=== PATIENT | male | born 1975 | race African-American/Black ===

== ENCOUNTER 2016-09-12 16:01 | Inpatient (IN) | payer OTHER ==
[~2016-09-12] VITALS: Ht 188 cm; Wt 92.1 kg
--- NOTE | ~2016-09-12 | CON ---
[place], [place] REPORT OF CONSULTATION NAME: SHARMILA RODAS UNIT #: [id number] ROOM: [place] [address] DOCTOR: ALESSANDRA ESCOBAR BIRTHDATE: [birth year] DOS: 09/14/2016 HISTORY OF PRESENT ILLNESS: This is a 41-year-old male who was sent to [facility] for acute psychosis. The patient has a long history of schizophrenia and bipolar. He was brought by the police department acting erratically. Family of the patient reported that the patient had exposed himself to another family member and their 6-year-old daughter. Enroute to the hospital, he expressed suicidal ideation. He became very combative manic, yelling out, acting very erratically. Apparently, he had had a boil on his back side and requiring I and D, and so he was requiring multiple skin grafts, and so he is fixated on that. The patient was in the Emergency Room for approximately 3 days, trying to find placement. He has been in multiple psychiatric facilities recently, history of noncompliance with medications. He was eventually brought to the ICU because of some abnormal labs for management and stabilization in order to be transferred to a psychiatric unit. PAST MEDICAL HISTORY: Includes hep C, hidradenitis, skin ulcers. DIAGNOSES: AXIS I: Bipolar schizoaffective disorder, schizophrenia. MENTAL STATUS: The patient is alert and oriented to person, place, and approximate time. Mood, very labile. Affect is appropriate. He is a little sedated. I was initially contacted yesterday afternoon and gave orders for medications. After that within an hour, the patient became violent, a code had to be called. He was put in four-point restraints, and received not only IM Geodon, but then IM Haldol as well. The patient is currently denying any auditory or visual hallucinations. There may be some underlying delusions going on right now and a little bit of paranoia. Overall, memory appears to be intact. PLAN: I did discuss with nurses. They are using the p.r.n. Ativan. He does respond to this. Right now, he is a little groggy because of the Geodon, Haldol, and he received Ativan. I think at this point in time, I am going to schedule a low dose Ativan to see if we can head off some of the behaviors, and agitation and anxiety, keep him calm and maybe use less IM and p.r.n. medications if we can be a little more proactive. I did order the following medications for him. He is to be on Invega 6 mg. In the past, he received the Invega Sustenna injection, but he does not know the last time he received it. I did ask the nurse of last night to reach out to his pharmacist and find out what medications they are aware that he is still recently he used to be on, so right now he is getting Invega 6 mg. I will see how he does today taking it. He is agreeable to that and then I will bump that up. I had initially order trazodone to help him sleep, but he is also on p.r.n. Restoril, so I will go ahead and discontinue the trazodone that I had ordered. He has Geodon 20 mg IM or p.o., no more than 2 doses in 24 hours, p.r.n. ordered and Ativan 1 mg p.o. IM q.4 hours p.r.n., also ordered. He was to be on Depakote, but his valproic acid level was 3.4. He also admits that he was not taking the Depakote, so I have got him back on it. He is agreeable to take it. We will do 500 mg b.i.d. and then we will recheck his valproic acid level in a few days. He was found to be severely vitamin D deficient at 7.9. I will go ahead and start him on 50,000 [place], [place] REPORT OF CONSULTATION NAME: SHARMILA RODAS UNIT #: [id number] ROOM: [place] [address] DOCTOR: ALESSANDRA ESCOBAR BIRTHDATE: [birth year] international units every week for now. This will help with the psychotropics as well. The patient states that he does get frustrated to have to take pills all the time, he is more agreeable to the injection. He finds it easier, so once I see that he does not have any side effects other than him stating, he did not have any side effects to the Invega, if he tolerates it, we can help break some of the psychosis. We will look at maybe reloading him with Williams Ahmet if he indeed receive that and try to simplify his medications as much as possible to encourage compliance. In the meantime, I spoke his case with the hospitalist, they are trying to stabilize some of his other labs and then plan is to transfer him to a psychiatric hospital that takes his age group. We will continue to follow up with him and adjust medications from a psychiatric standpoint as needed. AMY ESCOBAR CNP CM:CONSTR:REPORT OF CONSULTATION 1016 09/17/16 0447 interface
[2016-09-12 16:01] VITALS: BP 151/109
[~2016-09-12 16:01] MED LIST: ATIVAN1 MG PO; BACTRIM DS 8001 TA1 PO; DEPAKOTE500 MG PO; INVEGA SUSTENN234 MG IM; Motrin,Rufen800 MG PO; NKHM; TYLENOL325 M1 PO; UNKONWN; ZITHROMAX250 MG PO
[2016-09-12 16:22] VITALS: BP 151/109
[2016-09-12] MEDS ORDERED: TRAZODONE50 MG PO (16:38)
[2016-09-12] MEDS ORDERED: DEPAKOTE DR500 MG PO (16:40)
[2016-09-12] MEDS ORDERED: COGENTIN0.5 MG PO (16:42)
[2016-09-12] MEDS ORDERED: INVEGA6 MG PO (16:44)
[2016-09-12] MEDS ORDERED: DOXYCYCLINE100 M3 PO (16:45)
[2016-09-12 17:30] LABS: BILIRUBIN NEGATIVE (NEGATIVE); BLOOD NEGATIVE (NEGATIVE); CLARITY SL CLOUDY (CLEAR); COLOR YELLOW (YELLOW); GLUCOSE NEGATIVE (NEGATIVE); KETONE NEGATIVE (NEGATIVE); LEUKO ESTERASE NEGATIVE (NEGATIVE); NITRITE NEGATIVE (NEGATIVE); PROTEIN NEGATIVE (NEGATIVE); SPECIFIC GRAVITY 1.025 (1.005-1.030)
[2016-09-12 17:37] LABS: BACTERIA 1+; EPITHELIAL CELLS 0-2; MUCOUS 1+; RBC 0-2 rbc/hpf (0-2); URINE AMPHETAMINES < 1000 (1000ng/ml); URINE BARBITURATES < 200 (200ng/ml); URINE COCAINE < 300 (300ng/ml); URINE REFLEX COMMENT NO (NO)
[2016-09-12 19:12] VITALS: BP 142/64
[2016-09-12 20:24] VITALS: BP 140/80
[2016-09-12 20:56] LABS: BASO % 0.4 % (0.0-1.0); EOS # 0.1 10*3/uL (0.0-0.4); EOS % 1.3 % (1.0-4.0); HEMATOCRIT 44.2 % (42.0-52.0); HEMOGLOBIN 15.2 g/dl (14.0-18.0); LYMPH # 2.1 10*3/uL (1.3-4.4); LYMPH % 38.7 % (27.0-41.0); MEAN CELL VOLUME 88.8 fl (80.0-94.0); MEAN CORPUSCULAR HGB 30.5 pg (27.0-31.0); MEAN CORPUSCULAR HGB CONC 34.4 g/dl (33.0-37.0); MEAN PLATELET VOLUME 9.6 fl (9.6-12.3); MONO # 0.7 10*3/uL (0.1-1.0); MONO % 13.2 % (3.0-9.0); NEUT # 2.5 10*3/uL (2.3-7.9); NEUT % 46.2 % (47.0-73.0); PLATELET COUNT AUTOMATED 137 10*3/uL (130-400); RED BLOOD COUNT 4.98 10*6/uL (4.50-5.90); RED CELL DISTRI WIDTH 11.9 % (0-14.5); WHITE BLOOD COUNT 5.5 10*3/uL (4.8-10.8)
[2016-09-12 21:13] LABS: ALBUMIN 3.4 gm/dl (3.1-4.5); ALKALINE PHOSPHATASE 82 U/L (45-117); BILIRUBIN, TOTAL 0.5 mg/dl (0.2-1.0); BUN 12 mg/dl (7-24); C-REACTIVE PROTEIN 0.36 MG/DL (0-0.3); CARBON DIOXIDE 29 mmol/L (21-32); CHLORIDE 104 mmol/L (98-107); CKMB 2.6 ng/ml (0.5-3.6); EST GLOM FILT AFRICAN AMERICAN > 60 ml/min; GLUCOSE 77 mg/dL (65-99); MAGNESIUM 2.1 mg/dL (1.5-2.1); POTASSIUM 3.9 mmol/L (3.5-5.1); SGOT/AST 53 IU/L (3-35); SGPT/ALT 39 U/L (12-78); SODIUM 142 mmol/L (136-145)
[2016-09-12 21:14] LABS: TROPONIN I 0.038 ng/ml (<0.045)
[2016-09-12 21:26] LABS: CPK 1120 U/L (39-308)
[2016-09-12 22:18] VITALS: BP 146/76
[2016-09-13] VITALS (8 sets, daily range): BP systolic 122–154; BP diastolic 66–90
[2016-09-13 06:52] LABS: ALBUMIN 3.5 gm/dl (3.1-4.5); ALKALINE PHOSPHATASE 84 U/L (45-117); BILIRUBIN, TOTAL 0.6 mg/dl (0.2-1.0); BUN 13 mg/dl (7-24); CARBON DIOXIDE 31 mmol/L (21-32); CHLORIDE 104 mmol/L (98-107); EST GLOM FILT AFRICAN AMERICAN > 60 ml/min; GLUCOSE 101 mg/dL (65-99); POTASSIUM 3.7 mmol/L (3.5-5.1); SGOT/AST 73 IU/L (3-35); SGPT/ALT 44 U/L (12-78); SODIUM 142 mmol/L (136-145); TOTAL PROTEIN 7.5 gm/dL (6.4-8.2)
[2016-09-13 07:38] LABS: CPK 1705 U/L (39-308)
[2016-09-14 04:20] VITALS: BP 120/68
[2016-09-14 07:35] VITALS: BP 133/95
[2016-09-14 12:24] LABS: CKMB 2.3 ng/ml (0.5-3.6); TROPONIN I 0.021 ng/ml (<0.045)
[2016-09-14 13:50] VITALS: BP 105/64
[2016-09-14 16:00] VITALS: BP 119/79
[2016-09-14 16:57] LABS: CKMB 1.9 ng/ml (0.5-3.6); TROPONIN I 0.026 ng/ml (<0.045)
[2016-09-14 17:01] LABS: VITAMIN D, 25-HYDROXY 7.5 ng/mL (30-100)
[2016-09-14 17:05] LABS: THYROID STIM HORMONE (HS) 0.356 uIU/ml (0.358-4.75)
[2016-09-15 00:27] LABS: CKMB 1.7 ng/ml (0.5-3.6); TROPONIN I 0.016 ng/ml (<0.045)
[2016-09-15 05:41] LABS: ALBUMIN 2.6 gm/dl (3.1-4.5); ALKALINE PHOSPHATASE 80 U/L (45-117); BILIRUBIN, TOTAL 0.2 mg/dl (0.2-1.0); BUN 7 mg/dl (7-24); CARBON DIOXIDE 27 mmol/L (21-32); CHLORIDE 107 mmol/L (98-107); CHOLESTEROL 135 mg/dL (<200); EST GLOM FILT AFRICAN AMERICAN > 60 ml/min; FREE T4 0.91 ng/dl (0.76-1.46); GLUCOSE 111 mg/dL (65-99); HDL CHOLESTEROL 47 mg/dl (40-60); LDL CHOLESTEROL 59 mg/dL (9-159); MAGNESIUM 1.8 mg/dL (1.5-2.1); PHOSPHOROUS 2.1 mg/dL (2.5-4.9); POTASSIUM 4.1 mmol/L (3.5-5.1); SGOT/AST 35 IU/L (3-35); SGPT/ALT 30 U/L (12-78); SODIUM 145 mmol/L (136-145); TRIGLYCERIDES 144 mg/dl (<150); VLDL CHOLESTEROL 29 mg/dL (6-40)
[2016-09-15 05:46] LABS: THYROID STIM HORMONE (HS) 0.214 uIU/ml (0.358-4.75)
[2016-09-15 05:50] LABS: HEMOGLOBIN A1c 5.6 % (4.8-5.6)
[2016-09-15 06:03] LABS: BASO % 0.3 % (0.0-1.0); EOS # 0.2 10*3/uL (0.0-0.4); EOS % 2.3 % (1.0-4.0); HEMATOCRIT 41.1 % (42.0-52.0); LYMPH # 1.5 10*3/uL (1.3-4.4); LYMPH % 21.1 % (27.0-41.0); MEAN CELL VOLUME 89.3 fl (80.0-94.0); MEAN CORPUSCULAR HGB 30.4 pg (27.0-31.0); MEAN CORPUSCULAR HGB CONC 34.1 g/dl (33.0-37.0); MEAN PLATELET VOLUME 10.1 fl (9.6-12.3); MONO # 1.1 10*3/uL (0.1-1.0); MONO % 15.4 % (3.0-9.0); NEUT # 4.4 10*3/uL (2.3-7.9); NEUT % 60.6 % (47.0-73.0); PLATELET COUNT AUTOMATED 152 10*3/uL (130-400); RED CELL DISTRI WIDTH 11.9 % (0-14.5); WHITE BLOOD COUNT 7.3 10*3/uL (4.8-10.8)
[2016-09-15 06:12] LABS: PROTHROMBIN TIME 10.5 SECONDS (9.0-12.4)
[2016-09-15 06:23] LABS: FOLIC ACID 5.65 ng/mL (>5.38); VITAMIN D, 25-HYDROXY 7.9 ng/mL (30-100)
[2016-09-15 08:00] VITALS: BP 105/77
[2016-09-15 09:04] LABS: TROPONIN I 0.015 ng/ml (<0.045)
[2016-09-15 12:00] VITALS: BP 105/77
[2016-09-15 12:20] LABS: CKMB 0.9 ng/ml (0.5-3.6); TROPONIN I 0.017 ng/ml (<0.045)
[2016-09-15 16:00] VITALS: BP 116/60
[2016-09-15 18:11] LABS: CKMB 0.9 ng/ml (0.5-3.6); CPK 823 U/L (39-308); TROPONIN I < 0.015 ng/ml (<0.045)
[2016-09-15 20:00] VITALS: BP 119/37
[2016-09-16] VITALS: BP 125/65
[2016-09-16 00:25] LABS: CPK 731 U/L (39-308)
[2016-09-16 00:48] LABS: TROPONIN I < 0.015 ng/ml (<0.045)
[2016-09-16 04:00] VITALS: BP 113/72
[2016-09-16 06:23] LABS: CKMB 1.3 ng/ml (0.5-3.6); TROPONIN I 0.015 ng/ml (<0.045)
[2016-09-16 08:00] VITALS: BP 117/52
[2016-09-16 16:00] VITALS: BP 158/72
[2016-09-17] VITALS: BP 116/62
[2016-09-17 08:00] VITALS: BP 107/76
[2016-09-17 16:00] VITALS: BP 117/93
[2016-09-17 20:00] VITALS: BP 133/97
[2016-09-18 06:28] LABS: BASO % 0.4 % (0.0-1.0); EOS # 0.2 10*3/uL (0.0-0.4); EOS % 3.9 % (1.0-4.0); HEMATOCRIT 39.6 % (42.0-52.0); HEMOGLOBIN 13.6 g/dl (14.0-18.0); LYMPH # 1.9 10*3/uL (1.3-4.4); LYMPH % 35.5 % (27.0-41.0); MEAN CORPUSCULAR HGB 30.6 pg (27.0-31.0); MEAN CORPUSCULAR HGB CONC 34.3 g/dl (33.0-37.0); MEAN PLATELET VOLUME 9.7 fl (9.6-12.3); MONO # 0.9 10*3/uL (0.1-1.0); MONO % 17.1 % (3.0-9.0); NEUT # 2.3 10*3/uL (2.3-7.9); NEUT % 42.7 % (47.0-73.0); PLATELET COUNT AUTOMATED 179 10*3/uL (130-400); RED BLOOD COUNT 4.45 10*6/uL (4.50-5.90); RED CELL DISTRI WIDTH 11.9 % (0-14.5); WHITE BLOOD COUNT 5.3 10*3/uL (4.8-10.8)
[2016-09-18 06:50] LABS: CPK 427 U/L (39-308); EST GLOM FILT AFRICAN AMERICAN > 60 ml/min
[2016-09-18 08:00] VITALS: BP 122/72
[2016-09-18 16:00] VITALS: BP 130/76
[2016-09-18 20:00] VITALS: BP 117/62
[2016-09-19] VITALS: BP 126/71
[2016-09-19 08:00] VITALS: BP 107/78
[2016-09-19 12:00] VITALS: BP 108/77
[2016-09-19] MEDS ORDERED: VITAMIN D50000 I3 PO (14:46)
== END 2016-09-19 16:00 | disposition home health service (06) | DRG 557 ==
LOC: ED 16:01 → 4E 09-14 09:00 → ICCU 09-14 09:00 → EDHOLD 09-14 09:00 → ICCU 09-14 11:04 → 4E 09-17 14:19
PROVIDERS: Emergency Medicine; Emergency Medicine Emergency Medical Services; Hospitalist; Internal Medicine; Psychiatry & Neurology Psychiatry
DX: M62.82 Rhabdomyolysis (principal); E43 Unspecified severe protein-calorie malnutrition; F23 Brief psychotic disorder; L73.2 Hidradenitis suppurativa; L98.499 Non-pressure chronic ulcer of skin of other sites with unspecified severity; F17.200 Nicotine dependence, unspecified, uncomplicated; B18.2 Chronic viral hepatitis C; F25.0 Schizoaffective disorder, bipolar type; E55.9 Vitamin D deficiency, unspecified; Z93.3 Colostomy status; Z83.511 Family history of glaucoma; Z83.3 Family history of diabetes mellitus; Z71.6 Tobacco abuse counseling; Z84.1 Family history of disorders of kidney and ureter; Z88.0 Allergy status to penicillin; Z88.1 Allergy status to other antibiotic agents; Z79.2 Long term (current) use of antibiotics; Z79.899 Other long term (current) drug therapy; Z68.26 Body mass index [BMI] 26.0-26.9, adult

== ENCOUNTER 2016-10-01 17:29 | Emergency (ER) | payer OTHER ==
[~2016-10-01] VITALS: Ht 187.9 cm; Wt 90.3 kg
[~2016-10-01 17:29] MED LIST changes: +COGENTIN0.5 MG PO; +DEPAKOTE DR500 MG PO; +DOXYCYCLINE100 M3 PO; +INVEGA6 MG PO; +TRAZODONE50 MG PO; +VITAMIN D50000 I3 PO
[2016-10-01] MEDS ORDERED: BENADRYL ALLERG25 M5 PO (17:43)
[2016-10-01 18:47] LABS: BASO % 0.3 % (0.0-1.0); EOS # 0.2 10*3/uL (0.0-0.4); HEMATOCRIT 40.7 % (42.0-52.0); HEMOGLOBIN 13.7 g/dl (14.0-18.0); LYMPH # 2.4 10*3/uL (1.3-4.4); LYMPH % 41.2 % (27.0-41.0); MEAN CELL VOLUME 89.5 fl (80.0-94.0); MEAN CORPUSCULAR HGB 30.1 pg (27.0-31.0); MEAN CORPUSCULAR HGB CONC 33.7 g/dl (33.0-37.0); MEAN PLATELET VOLUME 10.1 fl (9.6-12.3); MONO # 0.7 10*3/uL (0.1-1.0); MONO % 12.3 % (3.0-9.0); NEUT # 2.5 10*3/uL (2.3-7.9); NEUT % 42.7 % (47.0-73.0); PLATELET COUNT AUTOMATED 117 10*3/uL (130-400); RED BLOOD COUNT 4.55 10*6/uL (4.50-5.90); RED CELL DISTRI WIDTH 12.1 % (0-14.5); WHITE BLOOD COUNT 5.9 10*3/uL (4.8-10.8)
[2016-10-01 18:51] LABS: BILIRUBIN NEGATIVE (NEGATIVE); BLOOD NEGATIVE (NEGATIVE); CLARITY CLEAR (CLEAR); COLOR YELLOW (YELLOW); GLUCOSE NEGATIVE (NEGATIVE); KETONE 1+ (NEGATIVE); LEUKO ESTERASE NEGATIVE (NEGATIVE); NITRITE NEGATIVE (NEGATIVE); PROTEIN NEGATIVE (NEGATIVE)
[2016-10-01 18:57] LABS: PROTHROMBIN TIME 10.8 SECONDS (9.0-12.4)
[2016-10-01 19:03] LABS: URINE AMPHETAMINES < 1000 (1000ng/ml); URINE BARBITURATES < 200 (200ng/ml); URINE COCAINE < 300 (300ng/ml)
[2016-10-01 19:03] LABS: ALBUMIN 3.4 gm/dl (3.1-4.5); ALKALINE PHOSPHATASE 90 U/L (45-117); BILIRUBIN, TOTAL 0.2 mg/dl (0.2-1.0); BUN 15 mg/dl (7-24); CARBON DIOXIDE 30 mmol/L (21-32); CHLORIDE 103 mmol/L (98-107); CKMB 1.7 ng/ml (0.5-3.6); CPK 582 U/L (39-308); EST GLOM FILT AFRICAN AMERICAN > 60 ml/min; GLUCOSE 85 mg/dL (65-99); MAGNESIUM 2.2 mg/dL (1.5-2.1); SGOT/AST 34 IU/L (3-35); SGPT/ALT 24 U/L (12-78); SODIUM 141 mmol/L (136-145); TOTAL PROTEIN 7.2 gm/dL (6.4-8.2); TROPONIN I 0.027 ng/ml (<0.045)
[2016-10-01 19:08] LABS: BACTERIA 1+; EPITHELIAL CELLS 0-2; URINE REFLEX COMMENT NO (NO); WBC 0-2 wbc/hpf (0-5)
[2016-10-01 19:13] LABS: C-REACTIVE PROTEIN < 0.29 MG/DL (0-0.3)
[2016-10-02 01:34] VITALS: BP 154/74
== END 2016-10-02 08:29 | disposition home or self-care (01) ==
LOC: ED 17:29
PROVIDERS: Emergency Medicine
DX: F20.9 Schizophrenia, unspecified (principal); Z88.0 Allergy status to penicillin; Z88.1 Allergy status to other antibiotic agents; F17.200 Nicotine dependence, unspecified, uncomplicated

== ENCOUNTER 2017-04-10 15:28 | Emergency (ER) | payer OTHER ==
[~2017-04-10] VITALS: Ht 187.9 cm; Wt 83.9 kg
[2017-04-10 15:28] VITALS: BP 125/82
[~2017-04-10 15:28] MED LIST changes: +BENADRYL ALLERG25 M5 PO
[2017-04-10 16:16] LABS: BASO % 0.4 % (0.0-1.0); EOS % 0.6 % (1.0-4.0); HEMATOCRIT 46.4 % (42.0-52.0); HEMOGLOBIN 16.2 g/dl (14.0-18.0); LYMPH # 1.8 10*3/uL (1.3-4.4); LYMPH % 35.5 % (27.0-41.0); MEAN CELL VOLUME 88.4 fl (80.0-94.0); MEAN CORPUSCULAR HGB 30.9 pg (27.0-31.0); MEAN CORPUSCULAR HGB CONC 34.9 g/dl (33.0-37.0); MEAN PLATELET VOLUME 9.9 fl (9.6-12.3); MONO # 0.4 10*3/uL (0.1-1.0); MONO % 8.3 % (3.0-9.0); NEUT # 2.8 10*3/uL (2.3-7.9); PLATELET COUNT AUTOMATED 154 10*3/uL (130-400); RED BLOOD COUNT 5.25 10*6/uL (4.50-5.90); WHITE BLOOD COUNT 5.2 10*3/uL (4.8-10.8)
[2017-04-10 16:20] LABS: BILIRUBIN NEGATIVE (NEGATIVE); BLOOD NEGATIVE (NEGATIVE); CLARITY SL CLOUDY (CLEAR); COLOR YELLOW (YELLOW); GLUCOSE NEGATIVE (NEGATIVE); KETONE 1+ (NEGATIVE); LEUKO ESTERASE NEGATIVE (NEGATIVE); NITRITE NEGATIVE (NEGATIVE); SPECIFIC GRAVITY >= 1.030 (1.005-1.030)
[2017-04-10 16:34] LABS: ALBUMIN 3.8 gm/dl (3.1-4.5); ALKALINE PHOSPHATASE 103 U/L (45-117); BUN 10 mg/dl (7-24); CHLORIDE 103 mmol/L (98-107); CREATININE 1.07 mg/dL (0.70-1.30); POTASSIUM 3.8 mmol/L (3.5-5.1); SGOT/AST 51 IU/L (3-35); SGPT/ALT 36 U/L (12-78); SODIUM 139 mmol/L (136-145); TOTAL PROTEIN 7.9 gm/dL (6.4-8.2)
[2017-04-10 16:35] LABS: TROPONIN I < 0.015 ng/ml (<0.045)
[2017-04-10 16:39] LABS: BACTERIA TRACE; MUCOUS 2+; WBC 0-2 wbc/hpf (0-5)
[2017-04-10 16:40] LABS: THYROID STIM HORMONE (HS) 0.384 uIU/ml (0.358-4.75)
[2017-04-10 16:45] LABS: URINE AMPHETAMINES < 1000 (1000ng/ml); URINE BARBITURATES < 200 (200ng/ml); URINE BENZODIAZEPINES < 200 (200ng/ml); URINE CANNABINOIDS (THC) > 50 (50ng/ml); URINE COCAINE < 300 (300ng/ml); URINE METHADONE < 300 (300ng/ml); URINE OPIATES < 300 (300ng/ml)
[2017-04-10 16:46] LABS: URINE PHENCYCLIDINE < 25 (25ng/ml)
== END 2017-04-10 17:00 | disposition home or self-care (01) ==
LOC: ED 15:28
PROVIDERS: Internal Medicine
DX: Z00.8 Encounter for other general examination (principal); F41.9 Anxiety disorder, unspecified; F17.200 Nicotine dependence, unspecified, uncomplicated; Z88.0 Allergy status to penicillin

== ENCOUNTER 2017-04-11 00:22 | Emergency (ER) | payer OTHER ==
[~2017-04-11] VITALS: Ht 182.8 cm; Wt 90.7 kg
[2017-04-11 00:37] VITALS: BP 104/82
[2017-04-11 00:52] LABS: BASO % 0.2 % (0.0-1.0); EOS # 0.1 10*3/uL (0.0-0.4); EOS % 0.9 % (1.0-4.0); HEMATOCRIT 46.3 % (42.0-52.0); HEMOGLOBIN 16.2 g/dl (14.0-18.0); LYMPH # 3.4 10*3/uL (1.3-4.4); LYMPH % 37.9 % (27.0-41.0); MEAN CELL VOLUME 87.4 fl (80.0-94.0); MEAN CORPUSCULAR HGB 30.6 pg (27.0-31.0); MEAN PLATELET VOLUME 10.2 fl (9.6-12.3); MONO # 0.9 10*3/uL (0.1-1.0); MONO % 10.3 % (3.0-9.0); NEUT # 4.5 10*3/uL (2.3-7.9); NEUT % 50.5 % (47.0-73.0); PLATELET COUNT AUTOMATED 171 10*3/uL (130-400); RED CELL DISTRI WIDTH 12.1 % (0-14.5); WHITE BLOOD COUNT 8.8 10*3/uL (4.8-10.8)
[2017-04-11 01:07] LABS: ALKALINE PHOSPHATASE 101 U/L (45-117); BUN 14 mg/dl (7-24); CHLORIDE 104 mmol/L (98-107); ETHYL ALCOHOL < 3.0 mg/dl (<3); POTASSIUM 4.2 mmol/L (3.5-5.1); SGOT/AST 56 IU/L (3-35); SGPT/ALT 35 U/L (12-78); SODIUM 141 mmol/L (136-145); TOTAL PROTEIN 7.9 gm/dL (6.4-8.2)
[2017-04-11 06:56] LABS: BILIRUBIN NEGATIVE (NEGATIVE); BLOOD NEGATIVE (NEGATIVE); CLARITY CLEAR (CLEAR); COLOR YELLOW (YELLOW); GLUCOSE NEGATIVE (NEGATIVE); KETONE 2+ (NEGATIVE); LEUKO ESTERASE NEGATIVE (NEGATIVE); NITRITE NEGATIVE (NEGATIVE); SPECIFIC GRAVITY >= 1.030 (1.005-1.030)
[2017-04-11 07:02] LABS: URINE AMPHETAMINES < 1000 (1000ng/ml); URINE BARBITURATES < 200 (200ng/ml); URINE BENZODIAZEPINES < 200 (200ng/ml); URINE CANNABINOIDS (THC) > 50 (50ng/ml); URINE COCAINE < 300 (300ng/ml); URINE METHADONE < 300 (300ng/ml); URINE OPIATES < 300 (300ng/ml)
[2017-04-11 07:05] LABS: MUCOUS 1+; RBC 0-2 rbc/hpf (0-2); WBC 0-2 wbc/hpf (0-5)
[2017-04-11 07:06] LABS: BACTERIA TRACE
[2017-04-11 07:08] LABS: URINE PHENCYCLIDINE < 25 (25ng/ml)
== END 2017-04-11 10:22 | disposition home or self-care (01) ==
LOC: ED 00:22
PROVIDERS: Emergency Medicine
DX: F29 Unspecified psychosis not due to a substance or known physiological condition (principal); F20.9 Schizophrenia, unspecified; F31.9 Bipolar disorder, unspecified; F17.200 Nicotine dependence, unspecified, uncomplicated; F12.10 Cannabis abuse, uncomplicated; Z93.3 Colostomy status; Z98.890 Other specified postprocedural states; Z79.899 Other long term (current) drug therapy; Z88.0 Allergy status to penicillin; Z88.1 Allergy status to other antibiotic agents

== ENCOUNTER 2018-03-30 21:17 | Emergency (ER) | payer OTHER ==
[~2018-03-30] VITALS: Ht 182.8 cm; Wt 81.6 kg
--- NOTE | ~2018-03-30 | EKG ---
[place], [place] ELECTROCARDIOGRAM REPORT NAME: SHARMILA RODAS UNIT #: [id number] ROOM: DOCTOR: AZALEA DRAFT REPORT BIRTHDATE: [birth year] [facility] Test Date: 2018-03-31 Test Time: 06:09:57 Pat Name: SHARMILA RODAS Department: Room: Gender: School Bus Driver/Custodian: : 1975 Requested By: KATY GEE Order Number: [id number] Reading MD: Measurements Intervals [place] Rate: 55 P: OR: QRS: 69 QRSD: 100 T: 43 QT: 428 QTc: 410 Interpretive Statements Atrial fibrillation ST elev, probable normal early repol pattern Baseline wander in lead(s) V3 Compared to ECG 03/08/2018 15:54:58 Sinus rhythm no longer present ST (T wave) deviation still present CM:EKGRPT:ELECTROCARDIOGRAM REPORT KATY SANCHEZ DRAFT REPORT KATY GEE DO
--- NOTE | ~2018-03-30 | EKG ---
[place], [place] ELECTROCARDIOGRAM REPORT NAME: SHARMILA RODAS UNIT #: [id number] ROOM: DOCTOR: EPIPHANY DRAFT REPORT BIRTHDATE: [birth year] [facility] Test Date: 2018-03-30 Test Time: 21:35:48 Pat Name: SHARMILA RODAS Department: er Room: 2 Gender: M Healthcare Project Manager: : 1975 Requested By: KATY GEE Order Number: [id number] Reading MD: Wolfgang Brandt MD Measurements Intervals [place] Rate: 98 P: 73 DC: 164 QRS: 37 QRSD: 96 T: 32 QT: 325 QTc: 415 Interpretive Statements Sinus rhythm Probable left atrial enlargement RSR' in V1 or V2, right VCD or RVH Baseline wander in lead(s) V2 Compared to ECG 03/08/2018 15:54:58 Heart rate has increased by 30 beats/minute Electronically Signed On 03-31-2018 7:43:34 PDT by Wolfgang Brandt MD CM:EKGRPT:ELECTROCARDIOGRAM REPORT 0743 KATY SANCHEZ DRAFT REPORT KATY GEE DO
[~2018-03-30 21:17] MED LIST changes: +DEPAKOTE ER500 MG PO; +DIVALPROEX SOD500 MG PO; +OLANZAPINE10 MG PO; +OLANZAPINE5 MG PO; +RISPERDAL3 M1 PO
[2018-03-30 21:43] LABS: BILIRUBIN NEGATIVE (NEGATIVE); BLOOD NEGATIVE (NEGATIVE); CLARITY CLEAR (CLEAR); COLOR YELLOW (YELLOW); GLUCOSE NEGATIVE (NEGATIVE); KETONE NEGATIVE (NEGATIVE); LEUKO ESTERASE NEGATIVE (NEGATIVE); NITRITE NEGATIVE (NEGATIVE); PH 6.5 (5.0-9.0); UROBILINOGEN 0.2 E.U./dl (0.2-1.0)
[2018-03-30 21:46] LABS: BACTERIA TRACE; FINE GRANULAR CAST 0-1; MUCOUS TRACE; RBC 0-2 rbc/hpf (0-2); URINE AMPHETAMINES < 1000 (1000ng/ml); URINE BARBITURATES < 200 (200ng/ml); URINE BENZODIAZEPINES < 200 (200ng/ml); URINE CANNABINOIDS (THC) > 50 (50ng/ml); URINE COCAINE < 300 (300ng/ml); URINE METHADONE < 300 (300ng/ml); URINE OPIATES < 300 (300ng/ml); WBC 0-2 wbc/hpf (0-5)
[2018-03-30 21:49] LABS: URINE PHENCYCLIDINE < 25 (25ng/ml)
[2018-03-30 21:51] LABS: BASO % 0.4 % (0.0-1.0); EOS # 0.2 10*3/uL (0.0-0.4); EOS % 3.6 % (1.0-4.0); HEMATOCRIT 41.4 % (42.0-52.0); HEMOGLOBIN 14.3 g/dl (14.0-18.0); LYMPH # 2.3 10*3/uL (1.3-4.4); LYMPH % 46.3 % (27.0-41.0); MEAN CORPUSCULAR HGB 31.4 pg (27.0-31.0); MEAN CORPUSCULAR HGB CONC 34.5 g/dl (33.0-37.0); MEAN PLATELET VOLUME 10.6 fl (9.6-12.3); MONO # 0.7 10*3/uL (0.1-1.0); MONO % 14.7 % (3.0-9.0); NEUT # 1.7 10*3/uL (2.3-7.9); NEUT % 34.6 % (47.0-73.0); PLATELET COUNT AUTOMATED 90 10*3/uL (130-400); RED BLOOD COUNT 4.55 10*6/uL (4.50-5.90); RED CELL DISTRI WIDTH 12.6 % (0-14.5)
[2018-03-30 22:09] LABS: ALBUMIN 3.4 gm/dl (3.1-4.5); ALKALINE PHOSPHATASE 106 U/L (45-117); BUN 11 mg/dl (7-24); CHLORIDE 103 mmol/L (98-107); CPK 382 U/L (39-308); CREATININE 0.96 mg/dL (0.70-1.30); POTASSIUM 3.8 mmol/L (3.5-5.1); SGOT/AST 40 IU/L (3-35); SGPT/ALT 27 U/L (12-78); SODIUM 140 mmol/L (136-145); TOTAL PROTEIN 7.2 gm/dL (6.4-8.2)
[2018-03-30 22:18] LABS: TROPONIN I < 0.015 ng/ml (<0.045)
[2018-03-30 22:19] LABS: ACETAMINOPHEN (TYLENOL) < 2.0 ug/ml (10-30); ETHYL ALCOHOL < 3.0 mg/dl (<3)
[2018-03-31 09:13] VITALS: BP 123/80
== END 2018-03-31 12:06 | disposition home or self-care (01) ==
LOC: ED 21:17
PROVIDERS: Emergency Medicine
DX: F20.9 Schizophrenia, unspecified (principal); F31.9 Bipolar disorder, unspecified; I10 Essential (primary) hypertension; Z88.1 Allergy status to other antibiotic agents; Z88.0 Allergy status to penicillin; Z79.899 Other long term (current) drug therapy

== ENCOUNTER 2019-12-18 20:10 | Emergency (ER) | payer OTHER ==
[~2019-12-18] VITALS: Ht 182.8 cm; Wt 83.9 kg
[2019-12-18 22:22] LABS: BASO % 0.3 % (0.0-1.0); EOS % 0.6 % (1.0-4.0); HEMATOCRIT 51.9 % (42.0-52.0); LYMPH # 1.3 10*3/uL (1.3-4.4); LYMPH % 20.6 % (27.0-41.0); MEAN CELL VOLUME 92.5 fl (80.0-94.0); MEAN CORPUSCULAR HGB 30.8 pg (27.0-31.0); MEAN CORPUSCULAR HGB CONC 33.3 g/dl (33.0-37.0); MEAN PLATELET VOLUME 10.5 fl (9.6-12.3); MONO # 0.5 10*3/uL (0.1-1.0); MONO % 7.3 % (3.0-9.0); NEUT # 4.4 10*3/uL (2.3-7.9); NEUT % 70.9 % (47.0-73.0); PLATELET COUNT AUTOMATED 131 10*3/uL (130-400); RED BLOOD COUNT 5.61 10*6/uL (4.50-5.90); RED CELL DISTRI WIDTH 12.3 % (0-14.5); WHITE BLOOD COUNT 6.2 10*3/uL (4.8-10.8)
[2019-12-18 22:30] LABS: BUN 21 mg/dl (7-24); CHLORIDE 107 mmol/L (98-107); CREATININE 1.44 mg/dL (0.70-1.30); SODIUM 140 mmol/L (136-145)
[2019-12-18 22:31] LABS: ACETAMINOPHEN (TYLENOL) < 5.0 ug/ml (10-30); ETHYL ALCOHOL < 3.0 mg/dl (<3)
[2019-12-19 08:46] VITALS: BP 136/80
[2019-12-19 10:00] LABS: URINE AMPHETAMINES < 1000 (1000ng/ml); URINE BARBITURATES < 200 (200ng/ml); URINE BENZODIAZEPINES < 200 (200ng/ml); URINE CANNABINOIDS (THC) > 50 (50ng/ml); URINE COCAINE > 300 (300ng/ml); URINE METHADONE < 300 (300ng/ml); URINE OPIATES < 300 (300ng/ml); URINE PHENCYCLIDINE < 25 (25ng/ml)
[2019-12-19 10:10] LABS: BILIRUBIN NEGATIVE (NEGATIVE); BLOOD NEGATIVE (NEGATIVE); CLARITY CLEAR (CLEAR); COLOR YELLOW (YELLOW); GLUCOSE NEGATIVE (NEGATIVE); KETONE NEGATIVE (NEGATIVE); LEUKO ESTERASE NEGATIVE (NEGATIVE); NITRITE NEGATIVE (NEGATIVE); RBC 0-2 rbc/hpf (0-2); UROBILINOGEN 0.2 E.U./dl (0.2-1.0); WBC 0-2 wbc/hpf (0-5)
== END 2019-12-19 12:37 | disposition home or self-care (01) ==
LOC: ED 20:10
PROVIDERS: Emergency Medicine Emergency Medical Services
DX: F31.9 Bipolar disorder, unspecified (principal); F14.129 Cocaine abuse with intoxication, unspecified; F19.10 Other psychoactive substance abuse, uncomplicated; F17.200 Nicotine dependence, unspecified, uncomplicated

== ENCOUNTER 2019-12-20 11:36 | Inpatient (IN) | payer OTHER, MEDICAID ==
[~2019-12-20] VITALS: Ht 188 cm; Wt 73.5 kg
--- NOTE | 2019-12-20 11:55 | NUR ---
PT IN SECLUSION PER MD ORDERS
--- NOTE | 2019-12-20 12:11 | NUR ---
VITALS UNOBTAINABLE AT THIS TIME D/T AGGITATION AND AGGRESSION. WILL CHART VITALS WHEN THEY BECOME OBTAINABLE. MONITOR ON. SAFETY PRECAUTIONS INTACE.
--- NOTE | 2019-12-20 12:22 | NUR ---
PT PACING FLOORS. AGGITATION APPARENT. SAFETY PRECAUTIONS INTACT. WILL CONTINUE TO MONITOR.
--- NOTE | 2019-12-20 12:30 | NUR ---
PT RELAXING ON BED. SECURITY WILL ASSIST TO GET VITALS. MONITOR ON. DOOR LOCKED PER MD. WILL CONTINUE TO MONITOR.
[2019-12-20 12:35] VITALS: BP 97/57
--- NOTE | 2019-12-20 12:45 | NUR ---
PT CALM. DENIES NEEDS AT THIS TIME. WILL CONTINUE TO MONITOR.
--- NOTE | 2019-12-20 13:01 | NUR ---
BLOOD WORK AND EKG OBTAINED. PT DENIES NEEDING TO USE RESTROOM AT THIS TIME. PT RESTING COMFORTABLY. WILL CONTINUE TO MONITOR.
[2019-12-20 13:03] LABS: BASO % 0.4 % (0.0-1.0); EOS % 0.8 % (1.0-4.0); HEMATOCRIT 47.2 % (42.0-52.0); LYMPH # 1.4 10*3/uL (1.3-4.4); LYMPH % 28.9 % (27.0-41.0); MEAN CELL VOLUME 91.8 fl (80.0-94.0); MEAN CORPUSCULAR HGB 31.3 pg (27.0-31.0); MEAN CORPUSCULAR HGB CONC 34.1 g/dl (33.0-37.0); MEAN PLATELET VOLUME 10.1 fl (9.6-12.3); MONO # 0.5 10*3/uL (0.1-1.0); MONO % 9.4 % (3.0-9.0); NEUT # 2.9 10*3/uL (2.3-7.9); NEUT % 60.3 % (47.0-73.0); PLATELET COUNT AUTOMATED 132 10*3/uL (130-400); RED BLOOD COUNT 5.14 10*6/uL (4.50-5.90); RED CELL DISTRI WIDTH 12.4 % (0-14.5); WHITE BLOOD COUNT 4.8 10*3/uL (4.8-10.8)
--- NOTE | 2019-12-20 13:15 | NUR ---
PT RESTING ON BED. SAFETY PRECAUTIONS INTACT. MONITOR ON.
[2019-12-20 13:16] LABS: ACT PARTIAL THROMBO TIME 28.3 SECONDS (20.0-32.1); ALKALINE PHOSPHATASE 140 U/L (45-117); BUN 23 mg/dl (7-24); CHLORIDE 108 mmol/L (98-107); CREATININE 1.53 mg/dL (0.70-1.30); POTASSIUM 3.6 mmol/L (3.5-5.1); SGOT/AST 95 IU/L (3-35); SGPT/ALT 55 U/L (12-78); SODIUM 141 mmol/L (136-145); TOTAL PROTEIN 8.2 gm/dL (6.4-8.2); TROPONIN I 0.034 ng/ml (<0.045)
[2019-12-20 13:28] LABS: ACETAMINOPHEN (TYLENOL) < 5.0 ug/ml (10-30); CPK 2390 U/L (39-308); ETHYL ALCOHOL < 3.0 mg/dl (<3)
--- NOTE | 2019-12-20 13:34 | NUR ---
PT RESTING COMFORTABLY ON THE BED. MONITOR INTACT. DENIES NEEDS AT THIS TIME.
--- NOTE | 2019-12-20 13:36 | NUR ---
TELEPHONE CALL TO [facility] AND ASKED THEM TO CHECK CLIENTS MEDICARE INS DAYS FOR PSYCH , THEY WILL CALL ME BACK.
--- NOTE | 2019-12-20 13:37 | NUR ---
client has used all of his psych days for ins so i did leave a message for [facility], crisis account resolution specialist nadira armendariz to see if they can look at client for admission to [facility] . in the mean time dr calderón decided to admit client medically so he will be a probate court issue should he need to go to [facility] later.
--- NOTE | 2019-12-20 13:45 | NUR ---
IN WITH PT FOR ASSESSMENT.
--- NOTE | 2019-12-20 13:58 | NUR ---
DOOR OPEN PER MD ORDERS. PT SLEEPING. SAFETY PRECAUTIONS INTACT. WILL CONTINUE TO MONITOR.
[2019-12-20 14:18] VITALS: BP 134/85
[2019-12-20 14:28] LABS: BILIRUBIN NEGATIVE (NEGATIVE); BLOOD NEGATIVE (NEGATIVE); CLARITY SL CLOUDY (CLEAR); COLOR YELLOW (YELLOW); GLUCOSE NEGATIVE (NEGATIVE); KETONE NEGATIVE (NEGATIVE); LEUKO ESTERASE NEGATIVE (NEGATIVE); NITRITE NEGATIVE (NEGATIVE); UROBILINOGEN 0.2 E.U./dl (0.2-1.0)
[2019-12-20 14:34] LABS: URINE AMPHETAMINES < 1000 (1000ng/ml); URINE BARBITURATES < 200 (200ng/ml); URINE BENZODIAZEPINES < 200 (200ng/ml); URINE CANNABINOIDS (THC) > 50 (50ng/ml); URINE COCAINE > 300 (300ng/ml); URINE METHADONE < 300 (300ng/ml); URINE OPIATES < 300 (300ng/ml)
[2019-12-20 14:37] LABS: URINE PHENCYCLIDINE < 25 (25ng/ml)
[2019-12-20 14:43] LABS: BACTERIA TRACE; FINE GRANULAR CAST 16-20
[2019-12-20 14:45] VITALS: BP 134/93
--- NOTE | 2019-12-20 14:45 | NUR ---
A 44, admitted to [facility], under the services of SAMANTA Macias DO with a diagnosis of ERASMO,RHABDO.,PSYCHOSIS. Chief complaint is AGRESSION AND AGITATION AT HOME. Patient arrived via stretcher from [place]. Monitor applied. Initial assessment completed. Vital signs taken and recorded. SAMANTA MACIAS DO notified of admission to the unit. Orders received. See assessment for past medical history, medications and allergies. Patient and/or family oriented to unit. [facility] visitation policy reviewed. Clothing/patient valuable form completed. [place]
--- NOTE | 2019-12-20 15:24 | NUR ---
ALEXIS WOODS NOTIFIED OF CONSULT. SHE STATED TO NOTIFY HER WHEN PT IS MEDICALLY STABLE FOR TRANSFER TO AN INPT. PSYCH UNIT.
[2019-12-20 16:00] VITALS: BP 102/67
--- NOTE | 2019-12-20 16:00 | NUR ---
PT ATE WELL FOR DINNER. PT THEN FELL BACK TO SLEEP.
--- NOTE | 2019-12-20 16:40 | NUR ---
DR MURILLO TO COME UP AND TRY TO START PT'S IV AFTER MULTIPLE UNSUCCESSFUL ATTEMPTS.
--- NOTE | 2019-12-20 17:16 | NUR ---
PT'S MOTHER CALLED IN REGARDING. PT. I VERIFIED WITH PT THAT I COULD GIVE HER HIS PASSCODE AND UPDATE HER ON HIS CONDITION. I UPDATED HER ON HIS CONDITION AND I ANSWERED HER QUESTIONS.
--- NOTE | 2019-12-20 18:29 | NUR ---
DR JORGENSENRES HERE AND PLACED #20 HL IN LEFT UPPER ARM.
[2019-12-20 19:30] VITALS: BP 96/65
--- NOTE | 2019-12-20 19:37 | NUR ---
DR WILSON NOTIFIED OF PT HAVING PERIODS OF 2ND DEGREE TYPE 1 HEART BLOCK (WENCKEBACH) NONSUSTAINED. PT WITHOUT COMPLAINTS. OTHER VS STABLE. SKIN W/D. IVF INFUSING ORDERED.
--- NOTE | 2019-12-20 23:42 | NUR ---
PT LAYING ON HIS SIDE...SLEEPING. PT IS NSR 60'S-70'S.
[2019-12-21] VITALS: BP 106/68
[2019-12-21 04:00] VITALS: BP 98/61
[2019-12-21 05:10] LABS: ALBUMIN 3.1 gm/dl (3.1-4.5); ALKALINE PHOSPHATASE 154 U/L (45-117); BUN 20 mg/dl (7-24); CHLORIDE 113 mmol/L (98-107); CHOLESTEROL 137 mg/dL (<200); HDL CHOLESTEROL 54 mg/dl (40-60); LDL CHOLESTEROL 65 mg/dL (9-159); POTASSIUM 3.9 mmol/L (3.5-5.1); SGOT/AST 74 IU/L (3-35); SGPT/ALT 46 U/L (12-78); SODIUM 144 mmol/L (136-145); TOTAL PROTEIN 6.5 gm/dL (6.4-8.2); TRIGLYCERIDES 92 mg/dl (<150); VLDL CHOLESTEROL 18 mg/dL (6-40)
[2019-12-21 05:21] LABS: THYROID STIM HORMONE (HS) 0.264 uIU/ml (0.358-4.75)
[2019-12-21 05:44] LABS: CPK 1481 U/L (39-308)
--- NOTE | 2019-12-21 06:13 | NUR ---
PT SLEEPING. NO DISTRESS NOTED. SLEEPING IN PRONE POSITION AT THIS TIME.
--- NOTE | 2019-12-21 06:15 | NUR ---
DR WILSON NOTIFIED THAT PT HAD SOME MORE EPISODES OF HEART BLOCK AT 0415 WITH HR LOW 33 WITH WENCKEBACH AND OTHER JUST SINUS BOB IN 50'S. THESE CONTINUE TO OCCUR WHILE PT IS SLEEPING DEEPLY. HE AWAKENS EASILY AND HR RETURNS TO 60'S - 80'S SINUS.
[2019-12-21 06:20] LABS: BASO % 0.4 % (0.0-1.0); EOS # 0.2 10*3/uL (0.0-0.4); EOS % 4.3 % (1.0-4.0); LYMPH # 2.4 10*3/uL (1.3-4.4); LYMPH % 48.7 % (27.0-41.0); MEAN CORPUSCULAR HGB CONC 33.3 g/dl (33.0-37.0); MEAN PLATELET VOLUME 10.8 fl (9.6-12.3); MONO # 0.7 10*3/uL (0.1-1.0); MONO % 14.5 % (3.0-9.0); NEUT # 1.5 10*3/uL (2.3-7.9); NEUT % 31.7 % (47.0-73.0); PLATELET COUNT AUTOMATED 141 10*3/uL (130-400); RED BLOOD COUNT 4.84 10*6/uL (4.50-5.90); RED CELL DISTRI WIDTH 12.8 % (0-14.5); WHITE BLOOD COUNT 4.8 10*3/uL (4.8-10.8)
[2019-12-21 06:54] LABS: VITAMIN D, 25-HYDROXY 17.2 ng/mL (30-100)
[2019-12-21 08:00] VITALS: BP 115/67
--- NOTE | 2019-12-21 08:16 | NUR ---
PT IS AAOX3. VERY PLEASANT AND COOPERATIVE. VSS. PT DENIES COMPLAINTS AT THIS TIME. LEFT UPPER ARM EDEMATOUS. HL D/C'D INTACT. DRESSING APPLIED.
--- NOTE | 2019-12-21 09:43 | NUR ---
SHARMILA RODAS [id number] Please refer to the physician's history and physical for past medical history, comorbid conditions, and allergies. Diagnosis: PSYCHOSIS ERASMO RHABDOMYOLYSIS Gilbert Score: 23,LOW OR NO RISK WOUND DESCRIPTIONS: Wound Number: 1 Location of the wound: left upper arm, Type of wound: skin tear Thickness: Partial Size: 1.5cm x 0.7cm x 0.1cm Tunneling: none Undermining: none Sinus Tract: none Presence of Exudate: Serous Amount: Light Color: Ramsey Odor: None Periwound Skin Appearance: Normal Wound edges: approximated Pain (associated with wound): none at time of assessment How does patient state this happened? upon removing tape it tore patient's Surface the patient is resting on: Isoflex SKIN PREVENTION RECOMMENDATION: 1. Pressure redistribution support surface as appropriate 2. Elevate heels 3. Remove boots/TEDS every shift and reapply 4. Head of bed 30 degrees as tolerated 5. Assess nutrition and hydration 6. Manage moisture 7. Avoid the use of containment devices while in bed 8. Use absorptive products on surfaces limit layers of linens on bed 9. Turn and reposition every 1-2 hours in bed and every 1 hour in chair as tolerated 10. Weight shifts every 15 minutes while up in chair 11. Offloading with pillows or device to keep heels elevated off bed 12. Monitor skin at least every shift 13. Inspect under medical devices twice a day WOUND TREATMENT RECOMMENDATIONS: Cleanse left upper arm with nss and apply antiobiotic ointment daily and prn for soiling.
--- NOTE | 2019-12-21 10:13 | NUR ---
[facility] NOTIFIED OF DR CHEW CONSULT. [facility] NOTIFIED OF CONSULT.
--- NOTE | 2019-12-21 10:59 | NUR ---
DAVID, FROM [facility], HERE TO SPEAK WITH PT.
[2019-12-21 12:00] VITALS: BP 122/77
--- NOTE | 2019-12-21 12:56 | NUR ---
DR GALARZA IN TO SEE PT EARLIER. UPDATED DR GALARZA ON PT'S CONDITION AND PLAN OF CARE. DR GALARZA INFORMED PT THAT LONG PT IS ASYMP. THAT NOTHING IS TO BE DONE REGARDING ARRYTHMIA. IF PT BECOMES SYMPTOMATIC THAT MORE TESTING WILL NEED TO BE ORDERED. PT VERBALIZED UNDERSTANDING AND AGREED WITH DR GALARZA'S RECOMENDATIONS.
--- NOTE | 2019-12-21 13:27 | NUR ---
Telemarketing Agent in to talk to patient. Patient states lives at HOME with ALONE. There are 2 steps in the home. Physician: NANCY Pharmacy: [facility] Home health services: NONE Patient's level of ADLs: INDEPENDENT Patient has working utilities: YES DME: NONE Follow-up physician's appointment after d/c: WILL BE MADE BY HOSPITALIST NURSE DIRECTOR ON DISCHARGE Does patient want to access PORTAL?: NO Discharge plan PT LIVES AT HOME ALONE AND IS INDEPENDENT IN HIS CARE. DENIES HE WILL HAVE ANY NEEDS ON DISCHARGE. PLAN IS TO RETURN HOME WHEN MEDICALLY STABLE. WILL CONTINUE TO FOLLOW. STATE HE WILL HAVE A RIDE HOME ON DISCHARGE.. SILVESTRE BAUGH
[2019-12-21 16:00] VITALS: BP 108/69
--- NOTE | 2019-12-21 16:00 | NUR ---
DR MARLOW NOTIFIED OF PT'S IV INFILTRATE AND NEED FOR ANOTHER IV SITE. PREVIOUS IV STARTED BY MARCO A FROM ANESTHESIA. DR MARLOW STATED HE WOULD SPEAK WITH DR [facility]INC[facility] AND LET ME KNOW WHAT THEY DECIDE.
--- NOTE | 2019-12-21 17:47 | NUR ---
DR MARLOW STATED PT IS OK WITHOUT IV. JUST ENCOURAGE FLUIDS.
--- NOTE | 2019-12-21 17:51 | NUR ---
DR MARLOW NOTIFIED THAT PT WOULD NOT WEAR CUFF RUNNER AND WAS PACING ACROSS THE UNIT.
--- NOTE | 2019-12-21 18:09 | NUR ---
PT REFUSED TO CHANGE HIS ROOM TO [facility]. HE STATED "NO THANK YOU, I'M FINE WHERE I AM AT." I TOLD HIM IF HE CHANGES HIS MIND TO LET US KNOW. PT VERBALIZED UNDERSTANDING.
[2019-12-21 20:00] VITALS: BP 129/84
[2019-12-22] VITALS: BP 106/66
[2019-12-22 06:13] LABS: ALBUMIN 2.7 gm/dl (3.1-4.5); BUN 13 mg/dl (7-24); CHLORIDE 110 mmol/L (98-107); POTASSIUM 3.9 mmol/L (3.5-5.1); SGOT/AST 64 IU/L (3-35); SGPT/ALT 46 U/L (12-78); SODIUM 140 mmol/L (136-145)
[2019-12-22 06:14] LABS: HEMATOCRIT 41.8 % (42.0-52.0); MEAN CELL VOLUME 92.3 fl (80.0-94.0); MEAN CORPUSCULAR HGB 30.9 pg (27.0-31.0); MEAN CORPUSCULAR HGB CONC 33.5 g/dl (33.0-37.0); MEAN PLATELET VOLUME 10.3 fl (9.6-12.3); PLATELET COUNT AUTOMATED 120 10*3/uL (130-400); RED BLOOD COUNT 4.53 10*6/uL (4.50-5.90); RED CELL DISTRI WIDTH 12.5 % (0-14.5); WHITE BLOOD COUNT 3.8 10*3/uL (4.8-10.8)
--- NOTE | 2019-12-22 06:19 | NUR ---
PATIENT HAS SLEPT THROUGH OUT THE NIGHT WITH NO PROBLEMS.
[2019-12-22 06:26] LABS: ALKALINE PHOSPHATASE 126 U/L (45-117)
[2019-12-22 06:36] LABS: CPK 1223 U/L (39-308)
[2019-12-22 07:06] LABS: TOTAL CELLS COUNTED 100 #CELLS
[2019-12-22 07:07] LABS: PLATELET SUFFICIENCY LOW (NORMAL)
--- NOTE | 2019-12-22 07:13 | NUR ---
Shift chart check completed.
--- NOTE | 2019-12-22 07:17 | NUR ---
Patient states that he will be able to care for this area to his left upper arm when he returns home and doesn't need to follow up in an outpatient setting at this time.
[2019-12-22 08:00] VITALS: BP 98/49
--- NOTE | 2019-12-22 08:08 | NUR ---
AM ASSESSMENT DONE - PT CO-OPERATIVE WITH CARE. DENIES SUICIDAL THOUGHTS & C/O. DR SALCEDO ROUNDED. NO IV SITE (DOCTORS AWARE). DR SELF TO LET UPPER ARM INTACT.
--- NOTE | 2019-12-22 08:30 | NUR ---
ALEXIS WOODS HERE AND WILL SPEAK WITH PATIENT ABOUT PALCEMENT/TREATMENT WHEN SHE COMES
--- NOTE | 2019-12-22 10:11 | NUR ---
psychiatric assessment: met with client who is well known to me, he is pleasant and cooperative, he is anxious, but much better than usual.he is not delusional, he denies any sensory disturbance. he is calm, client is able to converse well. i have seen client many times and he is now more stable then usual when his symptoms are exacerbated. client could go home with outpatient services, mabel mosher is going to write enough meds to cover client until his appt with dr ca, i did call the [facility] and got his appt moved to january [address] ca at 10 am, that will be a telepsych. client is not a danger at this time. he has been off of his medications since july. i did call clients mom who is his guardian and i had to leave a nessage on her vm, i did explain what we are planning to do, i asked her to call me with any questions, i did talk with mabel and her nurse and client everyone is in agreement with the plan, Louisa said that dr miranda was also aware. client will be discharged to home.
[2019-12-22] MEDS ORDERED: DIVALPROEX SOD500 MG PO (10:26)
[2019-12-22] MEDS ORDERED: PALIPERIDONE ER3 MG PO (10:26)
--- NOTE | 2019-12-22 10:47 | NUR ---
PATIENT IN THE SHOWER
--- NOTE | 2019-12-22 10:51 | NUR ---
Dr Gomez aware of OK to discharge home today
--- NOTE | 2019-12-22 11:30 | NUR ---
Discharge instructions reviewed with patient/family. Patient receptive and verbalizes understanding. Follow-up care arranged. Written instructions given to patient/family. AMBULATED OUT BAILEY RUELAS
== END 2019-12-22 11:30 | disposition home or self-care (01) | DRG 557 ==
LOC: ED 11:36 → ICCU 13:41 → EDHOLD 13:41 → ICCU 14:00
PROVIDERS: Emergency Medicine; Hospitalist; Internal Medicine; ADMIT Emergency Medicine
DX: M62.82 Rhabdomyolysis (principal); N17.0 Acute kidney failure with tubular necrosis; E43 Unspecified severe protein-calorie malnutrition; F31.60 Bipolar disorder, current episode mixed, unspecified; F25.0 Schizoaffective disorder, bipolar type; B18.2 Chronic viral hepatitis C; R74.0 Nonspecific elevation of levels of transaminase and lactic acid dehydrogenase [LDH]; R00.0 Tachycardia, unspecified; F17.210 Nicotine dependence, cigarettes, uncomplicated; E87.8 Other disorders of electrolyte and fluid balance, not elsewhere classified; F11.10 Opioid abuse, uncomplicated; R00.1 Bradycardia, unspecified; D72.819 Decreased white blood cell count, unspecified; D69.6 Thrombocytopenia, unspecified; R73.9 Hyperglycemia, unspecified; S41.112A Laceration without foreign body of left upper arm, initial encounter; F14.220 Cocaine dependence with intoxication, uncomplicated; F12.20 Cannabis dependence, uncomplicated; E83.41 Hypermagnesemia; X58.XXXA Exposure to other specified factors, initial encounter; Y93.89 Activity, other specified; Y92.89 Other specified places as the place of occurrence of the external cause; Y99.8 Other external cause status; Z88.0 Allergy status to penicillin; Z88.1 Allergy status to other antibiotic agents; Z86.14 Personal history of Methicillin resistant Staphylococcus aureus infection; Z82.49 Family history of ischemic heart disease and other diseases of the circulatory system; Z83.3 Family history of diabetes mellitus; Z84.1 Family history of disorders of kidney and ureter; Z82.5 Family history of asthma and other chronic lower respiratory diseases; Z83.511 Family history of glaucoma; Z68.20 Body mass index [BMI] 20.0-20.9, adult

== ENCOUNTER 2020-01-11 12:34 | Emergency (ER) | payer OTHER, MEDICAID ==
[~2020-01-11] VITALS: Ht 182.8 cm; Wt 54.4 kg
[~2020-01-11 12:34] MED LIST changes: +PALIPERIDONE ER3 MG PO
[2020-01-11 22:00] VITALS: BP 107/64
[2020-01-11 22:20] LABS: BASO % 0.2 % (0.0-1.0); EOS # 0.2 10*3/uL (0.0-0.4); EOS % 4.4 % (1.0-4.0); HEMATOCRIT 44.6 % (42.0-52.0); LYMPH # 2.6 10*3/uL (1.3-4.4); LYMPH % 53.3 % (27.0-41.0); MEAN CELL VOLUME 91.2 fl (80.0-94.0); MEAN CORPUSCULAR HGB 30.5 pg (27.0-31.0); MEAN CORPUSCULAR HGB CONC 33.4 g/dl (33.0-37.0); MONO # 0.5 10*3/uL (0.1-1.0); MONO % 9.4 % (3.0-9.0); NEUT # 1.6 10*3/uL (2.3-7.9); NEUT % 32.5 % (47.0-73.0); PLATELET COUNT AUTOMATED 144 10*3/uL (130-400); RED BLOOD COUNT 4.89 10*6/uL (4.50-5.90); RED CELL DISTRI WIDTH 12.5 % (0-14.5); WHITE BLOOD COUNT 4.8 10*3/uL (4.8-10.8)
[2020-01-11 22:36] LABS: ALBUMIN 3.2 gm/dl (3.1-4.5); ALKALINE PHOSPHATASE 116 U/L (45-117); BUN 17 mg/dl (7-24); CHLORIDE 109 mmol/L (98-107); CREATININE 1.16 mg/dL (0.70-1.30); LIPASE 80 U/L (73-393); POTASSIUM 3.5 mmol/L (3.5-5.1); SGOT/AST 54 IU/L (3-35); SGPT/ALT 37 U/L (12-78); SODIUM 143 mmol/L (136-145); TOTAL PROTEIN 6.5 gm/dL (6.4-8.2); TROPONIN I 0.021 ng/ml (<0.045)
[2020-01-11 22:38] LABS: ACETAMINOPHEN (TYLENOL) < 5.0 ug/ml (10-30); ETHYL ALCOHOL < 3.0 mg/dl (<3); VALPROIC ACID (DEPAKENE) < 3.0 ug/ml (50-100)
[2020-01-11 22:52] LABS: ACT PARTIAL THROMBO TIME 27.1 SECONDS (20.0-32.1)
== END 2020-01-12 06:39 | disposition home or self-care (01) ==
LOC: ED 12:34
PROVIDERS: Emergency Medicine
DX: F20.9 Schizophrenia, unspecified (principal); F31.9 Bipolar disorder, unspecified; Z88.0 Allergy status to penicillin; Z88.8 Allergy status to other drugs, medicaments and biological substances; Z79.899 Other long term (current) drug therapy

== ENCOUNTER 2020-01-12 22:59 | Inpatient (IN) | payer OTHER, MEDICAID ==
[~2020-01-12] VITALS: Ht 190.5 cm; Wt 75.4 kg
[2020-01-12 23:05] VITALS: BP 110/59
--- NOTE | 2020-01-13 00:57 | NUR ---
PT RESTING IN BED WITH EYES CLOSED, NO ACUTE DISTRESS NOTED AT THIS TIME, CALL LIGHT WITHIN REACH, RN WILL CONTINUE TO MONITOR
--- NOTE | 2020-01-13 02:00 | NUR ---
PT RESTING IN BED WITH EYES CLOSED, NO DISTRESS NOTED, CALL LIGHT WITHIN REACH, RN WILL CONTINUE TO MONITOR
--- NOTE | 2020-01-13 02:25 | NUR ---
PT RESTING IN BED WITH EYES CLOSED, NO DISTRESS NOTED, RESP EASY NONLABORED, RN WILL CONTINUE TO MONITOR
--- NOTE | 2020-01-13 03:06 | NUR ---
PT RESTING IN BED WITH EYES CLOSED, NO ACUTE DISTRESS NOTED AT THIS TIME, RESP EASY NON LABORED, PT EASILY AROUSES, RN WILL CONTINUE TO MONITOR
--- NOTE | 2020-01-13 03:53 | NUR ---
PT RESTING IN BED WITH EYES CLOSED, EASILY AROUSED, NO ACUTE DISTRESS NOTED, RESP EASY NON LABORED, WILL CONTINUE TO MONITOR
--- NOTE | 2020-01-13 04:34 | NUR ---
PT RESTING IN BED WITH EYES CLOSED, NO ACUTE DISTRESS NOTED, RN WILL CONTINUE TO MONITOR
--- NOTE | 2020-01-13 05:04 | NUR ---
PT RESTING IN BED EYES OPEN, MOVING AROUND, NO DISTRESS NOTED AT THIS TIME, WILL CONTINUE TO MONITOR
--- NOTE | 2020-01-13 05:17 | NUR ---
PT AWAKE IN ROOM, EATING TURKEY SANDWICH, RN WILL CONTINUE TO MONITOR
--- NOTE | 2020-01-13 05:50 | NUR ---
PT RESTLESS, AGITATED, PACING HALLWAY, VERBALLY UPSET, AWARE
[2020-01-13 06:21] VITALS: BP 125/59
--- NOTE | 2020-01-13 06:26 | NUR ---
PT RESTING IN BED WITH EYES CLOSED, NO ACUTE DISTRESS NOTED AT THIS TIME, RESP EASY NONLABORED, RN WILL CONTINUE TO MONITOR, PT WITHIN VIEW OF NURSES STATION
[2020-01-13 06:35] LABS: BASO % 0.4 % (0.0-1.0); EOS # 0.2 10*3/uL (0.0-0.4); EOS % 3.3 % (1.0-4.0); HEMATOCRIT 43.6 % (42.0-52.0); LYMPH # 2.3 10*3/uL (1.3-4.4); LYMPH % 46.7 % (27.0-41.0); MEAN CELL VOLUME 89.9 fl (80.0-94.0); MEAN CORPUSCULAR HGB 30.3 pg (27.0-31.0); MEAN CORPUSCULAR HGB CONC 33.7 g/dl (33.0-37.0); MEAN PLATELET VOLUME 10.3 fl (9.6-12.3); MONO # 0.4 10*3/uL (0.1-1.0); MONO % 8.9 % (3.0-9.0); NEUT % 40.5 % (47.0-73.0); PLATELET COUNT AUTOMATED 145 10*3/uL (130-400); RED BLOOD COUNT 4.85 10*6/uL (4.50-5.90); RED CELL DISTRI WIDTH 12.3 % (0-14.5); WHITE BLOOD COUNT 4.9 10*3/uL (4.8-10.8)
[2020-01-13 06:55] LABS: ALBUMIN 3.3 gm/dl (3.1-4.5); ALKALINE PHOSPHATASE 115 U/L (45-117); BUN 14 mg/dl (7-24); CHLORIDE 108 mmol/L (98-107); CREATININE 1.19 mg/dL (0.70-1.30); POTASSIUM 3.5 mmol/L (3.5-5.1); SGOT/AST 73 IU/L (3-35); SGPT/ALT 37 U/L (12-78); SODIUM 141 mmol/L (136-145); TOTAL PROTEIN 6.9 gm/dL (6.4-8.2)
[2020-01-13 07:03] LABS: ACETAMINOPHEN (TYLENOL) < 5.0 ug/ml (10-30); ETHYL ALCOHOL < 3.0 mg/dl (<3)
--- NOTE | 2020-01-13 07:05 | NUR ---
PATIENT REPORT FROM BREE RN AT THIS TIME. PATIENT LAYING IN BED AT THIS TIME. APPEARS IN NO DISTRESS. EYES CLOSED. WILL CONTINUE TO MONITOR.
--- NOTE | 2020-01-13 08:00 | NUR ---
PATIENT RESTING WITH EYES CLOSED. IN DIRECT LINE OF VISION OF NURSES STATION. WILL CONTINUE TO MONITOR.
--- NOTE | 2020-01-13 09:00 | NUR ---
PATIENT RESTING WITH EYES CLOSED. IN DIRECT LINE OF VISION OF NURSES STATION. WILL CONTINUE TO MONITOR.
--- NOTE | 2020-01-13 10:00 | NUR ---
ATTEMPTING TO GET PATIENT URINE STILL. PATIENT RESTING WITH EYES CLOSED. AWAKES TO VERBAL STIMULI BUT FALLS BACK ASLEEP. IN DIRECT LINE OF VISION OF NURSES STATION. WILL CONTINUE TO MONITOR.
--- NOTE | 2020-01-13 10:15 | NUR ---
ALEXIS WOODS HERE AT THIS TIME TO SEE PATIENT.
--- NOTE | 2020-01-13 10:19 | NUR ---
psychiatric assessment: met with client who is well known to me , he was just here and sent home yesterday morning, he was brought back [facility] for dancing in the street and "twerking" on a telephone pole, someome called the police, client has been manic and he has poor insight and judgement, he is nedication non compliant. he was supposed to have an appt today at the [facility] with dr ca to get his invega shot but he is here. that was set up by myself and the [facility] when he was last here about 2 weeks ago in [facility] medical [facility]es. he had enough medications sent home with him but he does not take them. he is now very dischelved, unkempt, socks are filthy, he was very hungry. he was very loud and agitated when he got here last night, but now is calm. client still need to give a urine before he can be referred to inpatient psychiatric, he is not suicidal, but he is not taking care of his basic needs and since his insight and judgement are impaired he could be [address] [facility]. i did call [facility] as he only has straight medicaid and since he is younger he can only go to a psych unit within a hospital to have coverage for psych, they have no beds. he can also be as a self pay and then would go to [facility] where he typically goes. i spoke the [facility] and made them aware we discussed a plan and once he gives a urine then i can work with them on the process for [facility]. will discuss with dr gonzalez. he will also need an ekg.
[2020-01-13 11:08] VITALS: BP 91/53
--- NOTE | 2020-01-13 11:08 | NUR ---
PATIENT LAYING IN BED SLEEPING AT THIS TIME. STILL NO URINE SPECIMEN YET.
--- NOTE | 2020-01-13 11:20 | NUR ---
PATIENT IS STILL LAYING IN BED WITH EYES CLOSED AT THIS TIME. APPEARS IN NO DISTRESS. IN DIRECT LINE OF VISION OF NURSES STATION. WILL CONTINUE TO MONITOR.
[2020-01-13 16:17] LABS: URINE AMPHETAMINES < 1000 (1000ng/ml); URINE BARBITURATES < 200 (200ng/ml); URINE BENZODIAZEPINES > 200 (200ng/ml); URINE CANNABINOIDS (THC) > 50 (50ng/ml); URINE COCAINE > 300 (300ng/ml); URINE METHADONE < 300 (300ng/ml); URINE OPIATES < 300 (300ng/ml)
[2020-01-13 16:19] LABS: URINE PHENCYCLIDINE < 25 (25ng/ml)
[2020-01-13 16:23] LABS: BILIRUBIN NEGATIVE (NEGATIVE); CLARITY CLEAR (CLEAR); COLOR YELLOW (YELLOW); GLUCOSE NEGATIVE (NEGATIVE)
[2020-01-13 16:24] LABS: BLOOD NEGATIVE (NEGATIVE); KETONE NEGATIVE (NEGATIVE); LEUKO ESTERASE NEGATIVE (NEGATIVE); NITRITE NEGATIVE (NEGATIVE); SPECIFIC GRAVITY 1.025 (1.005-1.030); UROBILINOGEN 0.2 E.U./dl (0.2-1.0)
[2020-01-13 16:25] LABS: BACTERIA TRACE; EPITHELIAL CELLS 0-2; MUCOUS 1+; RBC 0-2 rbc/hpf (0-2); WBC 0-2 wbc/hpf (0-5)
--- NOTE | 2020-01-13 19:29 | NUR ---
ASSUMED PT CARE FROM KEREN ALTMAN RN
--- NOTE | 2020-01-13 19:30 | NUR ---
PT RESTING IN BED WITH EYES CLOSED, NO ACUTE DISTRESS NOTED AT THIS TIME, RESP EASY NONLABORED, PT WITHIN SIGHT OF NURSES STATION, RN WILL CONTINUE TO MONITOR
--- NOTE | 2020-01-13 19:53 | NUR ---
spoke with gerard after i did the prescreen to refer client, we will fax them information as well. they have a waiting list and client would be number [phone].
--- NOTE | 2020-01-13 20:06 | NUR ---
telephone call to clients mother who is his guardian and she was not at home i left her a vm letting her know the status of client.
--- NOTE | 2020-01-13 20:22 | NUR ---
PT RESTING IN BED ON CELLPHONE, EATING BOXED LUNCH, NO DISTRESS NOTED, WITHIN SIGHT OF NURSES STATION, RN WILL CONTINUE TO MONITOR
--- NOTE | 2020-01-13 21:06 | NUR ---
PT RESTING IN BED WITH EYES OPEN WATCHING TV, NO DISTRESS NOTED AT THIS TIME, PT WITHIN SIGHT OF NURSES STATION, RN WILL CONTINUE TO MONITOR
--- NOTE | 2020-01-13 22:01 | NUR ---
PT RESTING IN BED WITH EYES CLOSED, NO DISTRESS NOTED, PT WITHIN SIGHT OF NURSE STATION, RN WILL CONTINUE TO MONITOR
--- NOTE | 2020-01-13 22:50 | NUR ---
[facility] CALLED REQUESTING CK LEVEL [place]PAKOTE LEVEL TO BE FAXED TO THEM, AWARE
--- NOTE | 2020-01-13 22:52 | NUR ---
PT RESTING IN BED WITH EYES CLOSED, NO ACUTE DISTRESS NOTED, RESP EASY NONLABORED, PT WITHIN SIGHT OF NURSES STATION, RN WILL CONTINUE TO MONITOR
[2020-01-13 23:57] LABS: CPK 1485 U/L (39-308); VALPROIC ACID (DEPAKENE) < 3.0 ug/ml (50-100)
--- NOTE | 2020-01-14 01:23 | NUR ---
PT RESTING IN BED WITH EYES CLOSED, NO ACUTE DISTRESS NOTED, RN WILL CONTINUE TO MONITOR
--- NOTE | 2020-01-14 02:17 | NUR ---
PT UP AMBULATING IN ROOM, NO DISTRESS NOTED, RN WILL CONTINUE TO MONITOR
--- NOTE | 2020-01-14 03:23 | NUR ---
PT RESTING IN BED ON CELLPHONE, NO DISTRESS NOTED AT THIS TIME, PT WITHIN SIGHT OF NURSES STATION, RN WILL CONTINUE TO MONITOR
--- NOTE | 2020-01-14 04:09 | NUR ---
NISA CALLED PT CK LEVEL HAS TO BE BELOW 500 FOR PT TO ACCEPT, PT CK LEVEL [phone], AWARE
--- NOTE | 2020-01-14 05:00 | NUR ---
PT UP AMBULATING, NO ACUTE DISTRESS NOTED, WITHIN SIGHT OF NURSE STATION, RN WILL CONTINUE TO MONITOR
--- NOTE | 2020-01-14 06:07 | NUR ---
PT RESTING IN BED WATCHING TV, NO ACUTE DISTRESS NOTED, PT WITHIN SIGHT OF NURSES STATION, RN WILL CONTINUE TO MONITOR
--- NOTE | 2020-01-14 06:44 | NUR ---
PT RESTING IN BED WITH EYES CLOSED NO DISTRESS NOTED RN WILL CONTINUE TO MONITOR
[2020-01-14 07:15] VITALS: BP 108/70
--- NOTE | 2020-01-14 07:20 | NUR ---
PATIENT AWOKEN FOR VITALS. DENIES SUICIDAL THOUGHTS AND IDEATIONS. COMPLAINTS OF BEING BORED. PATIENT LISTENING TO PHONE IN ROOM. HE KEEPS MAKING HIMSELF BELCH. PATIENT HAS CALL LIGHT WITHIN REACH.
--- NOTE | 2020-01-14 08:17 | NUR ---
PATIENT GIVEN FOOD TRAY. NO COMPLAINTS AT THIS TIME
--- NOTE | 2020-01-14 08:45 | NUR ---
PATIENT PULLED ON IV, NOW SITE IS SYMPTOMATIC. IV DISCONTINUED. DR NOTIFIED, ORDERS TO FOLLOW
--- NOTE | 2020-01-14 09:20 | NUR ---
PATIENT PACING IN HALLS EXPLAINED NUMEROUS TIMES THAT HE NEEDS TO REMAIN IN HIS ROOM FOR SAFETY. PATIENT QUESTIONING TO WHY HE IS STILL HERE. REDISCUSSED WITH PATIENT LAB RESULTS AND NEED FOR MEDICATION STABILIZATION. PATIENT VOICED UNDERSTANDING AND RETURNED TO HIS ROOM.
--- NOTE | 2020-01-14 10:04 | NUR ---
PATIENT IN ROOM TALKING ON PHONE. NO COMPLAINTS AT THIS TIME
--- NOTE | 2020-01-14 10:58 | NUR ---
RESTING QUIETLY ON PHONE. RESP EAYS AND NONLABORED ON ROOM AIR. NO SIGN OF DISTRESS.
[2020-01-14 11:36] VITALS: BP 115/75
--- NOTE | 2020-01-14 11:49 | NUR ---
PATIENT RESTING IN BED, IV FLUIDS NOT DRIPPING LINE IS NO GOOD. WILL ATTEMPT FOR A NEW ONE.
[2020-01-14 12:40] VITALS: BP 122/69
--- NOTE | 2020-01-14 12:40 | NUR ---
A 44, admitted to ICCU, under the services of JOSE ENRIQUE Valdez DO with a diagnosis of ACUTE PSYCHOSIS. Chief complaint is RHABDOMYOLYSIS. Patient arrived via bed from ER. Monitor applied. Initial assessment completed. Vital signs taken and recorded. JOSE ENRIQUE VALDEZ DO notified of admission to the unit. Orders received. See assessment for past medical history, medications and allergies. Patient and/or family oriented to unit. [facility] visitation policy reviewed. Clothing/patient valuable form completed. BOB FERNANDES
--- NOTE | 2020-01-14 14:00 | NUR ---
DR. AYALA NOTIFIED THAT MED REC IS UP-TO-DATE.
--- NOTE | 2020-01-14 15:00 | NUR ---
[facility] NOTIFIED OF CONSULT FOR DAVID DIAZ. PATIENT CONDITION REVIEWED.
--- NOTE | 2020-01-14 15:45 | NUR ---
DR. SOLANO IN TO SEE PATIENT AND DISCUSSED PLAN OF CARE.
[2020-01-14 16:00] VITALS: BP 110/71
[2020-01-14 20:00] VITALS: BP 125/66
[2020-01-15] VITALS: BP 130/64
--- NOTE | 2020-01-15 | NUR ---
ASSUMED CARE OF PATIENT. PATIENT IS SLEEPING WITH EASY AND REGULAR RESPERS ON ROOM AIR. AWAKENS EASILY FOR ASSESSMENT. ASSESSMENT IS COMPLETE. BED IS LOW, LOCKED, AND CALL LIGHT IS WITHIN REACH. WILL CONTINUE TO MONITOR. SEE INTERVENTIONS.
--- NOTE | 2020-01-15 03:02 | NUR ---
SLEEPING WITH EASY AND REGULAR RESPERS ON ROOM AIR. CALL LIGHT IS WITHIN REACH.
--- NOTE | 2020-01-15 03:02 | NUR ---
400ML EMPTIED FROM URINAL.
[2020-01-15 04:00] VITALS: BP 112/66
[2020-01-15 05:50] LABS: BUN 13 mg/dl (7-24); CHLORIDE 106 mmol/L (98-107); CHOLESTEROL 147 mg/dL (<200); CREATININE 0.88 mg/dL (0.70-1.30); POTASSIUM 3.9 mmol/L (3.5-5.1); SGOT/AST 60 IU/L (3-35); SGPT/ALT 38 U/L (12-78); SODIUM 137 mmol/L (136-145); TOTAL PROTEIN 6.6 gm/dL (6.4-8.2); TRIGLYCERIDES 102 mg/dl (<150); VLDL CHOLESTEROL 20 mg/dL (6-40)
[2020-01-15 05:57] LABS: ALKALINE PHOSPHATASE 106 U/L (45-117); HDL CHOLESTEROL 48 mg/dl (40-60); LDL CHOLESTEROL 79 mg/dL (9-159)
[2020-01-15 06:27] LABS: ACT PARTIAL THROMBO TIME 30.5 SECONDS (20.0-32.1)
[2020-01-15 06:36] LABS: HEMATOCRIT 44.7 % (42.0-52.0); MEAN CELL VOLUME 90.3 fl (80.0-94.0); MEAN CORPUSCULAR HGB 30.3 pg (27.0-31.0); MEAN CORPUSCULAR HGB CONC 33.6 g/dl (33.0-37.0); PLATELET COUNT AUTOMATED 143 10*3/uL (130-400); RED BLOOD COUNT 4.95 10*6/uL (4.50-5.90); RED CELL DISTRI WIDTH 12.3 % (0-14.5)
[2020-01-15 07:03] LABS: TOTAL CELLS COUNTED 100 #CELLS
[2020-01-15 07:04] LABS: PLATELET SUFFICIENCY NORMAL (NORMAL)
[2020-01-15 07:31] LABS: VITAMIN D, 25-HYDROXY 17.6 ng/mL (30-100)
[2020-01-15 08:00] VITALS: BP 112/73
[2020-01-15 12:00] VITALS: BP 122/77
--- NOTE | 2020-01-15 15:05 | NUR ---
Recruiting Coordinator in to talk to patient. Patient states lives at HOME with ALONE. There are NO steps in the home. Physician: NANCY Pharmacy: Home health services: NONE Patient's level of ADLs: INDEPENDENT Patient has working utilities: YES DME: NONE Follow-up physician's appointment after d/c: WILL BE MADE BY HOSPITALIST NURSE DIRECTOR ON DISCHARGE Does patient want to access PORTAL?: NO Discharge plan PT LIVES AT HOME ALONE AND IS INDEPENDENT IN HIS CARE. DENIES NEEDS ON DISCHARGE. WILL RETURN HOME WHEN MEDICALLY STABLE. WILL HAVE A RIDE HOME.. SILVESTRE BAUGH
[2020-01-15 16:00] VITALS: BP 112/75
[2020-01-15 20:00] VITALS: BP 117/77
[2020-01-16] VITALS: BP 113/86
--- NOTE | 2020-01-16 01:11 | NUR ---
PATIENT VERY COOPERTIVE WITH CARE. PATIENT HAS BEEN SLEEPING OTHER THAN BEING WOKEN UP FOR MEDS OR VITALS PATIENT HEART RATE IS 30'S-50'S DOCTORS AWARE. WILL MONITOR.
[2020-01-16 04:00] VITALS: BP 110/79
[2020-01-16 08:00] VITALS: BP 129/73
--- NOTE | 2020-01-16 08:59 | NUR ---
Prone, asleep. VSS.
--- NOTE | 2020-01-16 10:11 | NUR ---
summary: i spoke with the [facility] yesterday morning and [facility] did have a bed but i checked and clients level was 996, they need it to be below 500, i called them and told them that. [facility] did have a bed then, i called this am and his level is 590, i let the [facility] know this. once his level is down i will need to coordinate with [facility] to see if they have a bed and then try to get clients mother to sign paperwork for him to go there as a voluntary as she is his guardian, so i would not have to go to probate court.
--- NOTE | 2020-01-16 10:27 | NUR ---
IV site to LH dislodged and occluded. New site placed to LA which shortly after insertion infilltrated. New site placed to RA . IVF infusing as ordered. Dr. Thornton in to [facility].
[2020-01-16 12:00] VITALS: BP 118/64
--- NOTE | 2020-01-16 12:25 | NUR ---
Took breakfast well, currently asleep.
[2020-01-16 16:00] VITALS: BP 114/65
[2020-01-16 19:54] VITALS: BP 120/66
[2020-01-17] VITALS: BP 133/76
--- NOTE | 2020-01-17 | NUR ---
24 HR chart check completed.
[2020-01-17 04:00] VITALS: BP 102/57
--- NOTE | 2020-01-17 07:30 | NUR ---
Awake and alert this AM, Pleasent and co-operative w/ care. IV found infusing in pt's bed, complete linen change 0900 CK 330. Nery Escobar was notified and stated that bed at [facility] is no longer available. Dr. Thornton was notified.
[2020-01-17 08:00] VITALS: BP 107/74
[2020-01-17] MEDS ORDERED: VITAMIN D350 MC2 PO (08:32)
--- NOTE | 2020-01-17 11:00 | NUR ---
spoke with [facility] behavioral rhea this am, they have no beds today, his nurse did let me know that his level is in the 300 so he would be within their protocal, i will ask [facility] to fax that to [facility] with hopes there is a bed tomorrow, however mom is the guardian and need to sign him in i have called her everyday since he came to the er and left a vm to call me and she has not responded yet, i asked the [facility] to try to get different number from client but he does not know her number and his cell phone is , i asked nursing that if they hear from any family to please ask them to call me or get me a phone number.
--- NOTE | 2020-01-17 11:01 | NUR ---
Medicated for c/o pain 10/08 , all over.
[2020-01-17 12:00] VITALS: BP 109/64
--- NOTE | 2020-01-17 12:24 | NUR ---
Mother micheal in . Update was given and cell phone number was obtained and called to Nery Escobar.
[2020-01-17 16:00] VITALS: BP 117/73
[2020-01-17 20:00] VITALS: BP 118/75
--- NOTE | 2020-01-17 21:30 | NUR ---
PATIENT PULLED IV OUT AND MACHINING ASSOCIATE OFF. ATTEMPTED TO LEAVE. STAFF STOPPED SO THAT WE COULD CLEAN UP THE BLOOD. PATIENT SIGNED OUT AMA. NOTIFIED AND SPONGE HOOKER NOTIFIED.
== END 2020-01-17 21:40 | disposition left against medical advice (07) | DRG 558 ==
LOC: ED 22:59 → ICCU 01-14 11:14 → EDHOLD 01-14 11:14 → ICCU 01-14 11:21
PROVIDERS: Emergency Medicine; Hospitalist; ADMIT Student in an Organized Health Care Education/Training Program
DX: M62.82 Rhabdomyolysis (principal); F23 Brief psychotic disorder; F31.60 Bipolar disorder, current episode mixed, unspecified; R73.9 Hyperglycemia, unspecified; R73.03 Prediabetes; F14.90 Cocaine use, unspecified, uncomplicated; F12.90 Cannabis use, unspecified, uncomplicated; E87.8 Other disorders of electrolyte and fluid balance, not elsewhere classified; B18.2 Chronic viral hepatitis C; I10 Essential (primary) hypertension; F25.0 Schizoaffective disorder, bipolar type; F17.210 Nicotine dependence, cigarettes, uncomplicated; Z53.29 Procedure and treatment not carried out because of patient's decision for other reasons; Z86.14 Personal history of Methicillin resistant Staphylococcus aureus infection; Z88.1 Allergy status to other antibiotic agents; Z88.0 Allergy status to penicillin; Z84.1 Family history of disorders of kidney and ureter; Z82.49 Family history of ischemic heart disease and other diseases of the circulatory system; Z83.511 Family history of glaucoma; Z82.5 Family history of asthma and other chronic lower respiratory diseases; Z83.3 Family history of diabetes mellitus; Z79.899 Other long term (current) drug therapy; Z71.6 Tobacco abuse counseling

== ENCOUNTER → 2022-11-21 | Outpatient (CLI) | payer OTHER ==
[~2022-11-21] MED LIST changes: +VITAMIN D350 MC2 PO
== END | disposition home or self-care (01) ==
LOC: WOUNDCARE 01:37
PROVIDERS: ATTEND Nurse Practitioner Family
DX: S31.000A Unspecified open wound of lower back and pelvis without penetration into retroperitoneum, initial encounter (principal); L73.2 Hidradenitis suppurativa; B19.20 Unspecified viral hepatitis C without hepatic coma; F17.200 Nicotine dependence, unspecified, uncomplicated; F25.0 Schizoaffective disorder, bipolar type; F31.9 Bipolar disorder, unspecified; F12.90 Cannabis use, unspecified, uncomplicated; X58.XXXA Exposure to other specified factors, initial encounter; Y93.89 Activity, other specified; Y92.89 Other specified places as the place of occurrence of the external cause; Y99.8 Other external cause status

== ENCOUNTER → 2022-11-29 | Outpatient (CLI) | payer OTHER | LOC: WOUNDCARE 00:36 | PROVIDERS: ATTEND Nurse Practitioner Family | DX: L73.2 Hidradenitis suppurativa (principal); S31.000D Unspecified open wound of lower back and pelvis without penetration into retroperitoneum, subsequent encounter; S31.010D Laceration without foreign body of lower back and pelvis without penetration into retroperitoneum, subsequent encounter; L84 Corns and callosities; B19.20 Unspecified viral hepatitis C without hepatic coma; F17.200 Nicotine dependence, unspecified, uncomplicated; F31.9 Bipolar disorder, unspecified; F25.0 Schizoaffective disorder, bipolar type; X58.XXXD Exposure to other specified factors, subsequent encounter ==

== ENCOUNTER → 2022-12-19 | Outpatient (CLI) | payer OTHER | LOC: WOUNDCARE 01:40 | PROVIDERS: ATTEND Nurse Practitioner Family | DX: L73.2 Hidradenitis suppurativa (principal); S31.000D Unspecified open wound of lower back and pelvis without penetration into retroperitoneum, subsequent encounter; L98.492 Non-pressure chronic ulcer of skin of other sites with fat layer exposed; B19.20 Unspecified viral hepatitis C without hepatic coma; F25.0 Schizoaffective disorder, bipolar type; F17.200 Nicotine dependence, unspecified, uncomplicated; F31.9 Bipolar disorder, unspecified; X58.XXXD Exposure to other specified factors, subsequent encounter ==

== ENCOUNTER → 2022-12-26 | Outpatient (CLI) | payer OTHER | END | disposition home or self-care (01) | LOC: WOUNDCARE 00:47 | PROVIDERS: ATTEND Nurse Practitioner Family | DX: L73.2 Hidradenitis suppurativa (principal); S31.000D Unspecified open wound of lower back and pelvis without penetration into retroperitoneum, subsequent encounter; L98.492 Non-pressure chronic ulcer of skin of other sites with fat layer exposed; B19.20 Unspecified viral hepatitis C without hepatic coma; F25.0 Schizoaffective disorder, bipolar type; F17.200 Nicotine dependence, unspecified, uncomplicated; F31.9 Bipolar disorder, unspecified; X58.XXXD Exposure to other specified factors, subsequent encounter ==

== ENCOUNTER → 2023-01-02 | Outpatient (CLI) | payer MEDICARE, OTHER | END | disposition home or self-care (01) | LOC: WOUNDCARE 01:36 | PROVIDERS: ATTEND Nurse Practitioner Primary Care | DX: L73.2 Hidradenitis suppurativa (principal); L98.492 Non-pressure chronic ulcer of skin of other sites with fat layer exposed; S31.000D Unspecified open wound of lower back and pelvis without penetration into retroperitoneum, subsequent encounter; B19.20 Unspecified viral hepatitis C without hepatic coma; F25.0 Schizoaffective disorder, bipolar type; F17.200 Nicotine dependence, unspecified, uncomplicated; F31.9 Bipolar disorder, unspecified; X58.XXXD Exposure to other specified factors, subsequent encounter ==

== ENCOUNTER → 2023-01-08 | Outpatient (CLI) | payer MEDICARE, OTHER | END | disposition home or self-care (01) | LOC: WOUNDCARE 00:14 | PROVIDERS: ATTEND Nurse Practitioner Family | DX: L73.2 Hidradenitis suppurativa (principal); S31.000D Unspecified open wound of lower back and pelvis without penetration into retroperitoneum, subsequent encounter; L98.492 Non-pressure chronic ulcer of skin of other sites with fat layer exposed; B19.20 Unspecified viral hepatitis C without hepatic coma; E78.5 Hyperlipidemia, unspecified; F25.0 Schizoaffective disorder, bipolar type; F17.200 Nicotine dependence, unspecified, uncomplicated; F12.90 Cannabis use, unspecified, uncomplicated; F31.9 Bipolar disorder, unspecified; X58.XXXD Exposure to other specified factors, subsequent encounter ==

== ENCOUNTER → 2023-01-15 | Outpatient (CLI) | payer MEDICARE, OTHER | LOC: WOUNDCARE 01:51 | PROVIDERS: ATTEND Nurse Practitioner Family | DX: L73.2 Hidradenitis suppurativa (principal); S31.000D Unspecified open wound of lower back and pelvis without penetration into retroperitoneum, subsequent encounter; L98.422 Non-pressure chronic ulcer of back with fat layer exposed; B19.20 Unspecified viral hepatitis C without hepatic coma; E78.5 Hyperlipidemia, unspecified; F25.0 Schizoaffective disorder, bipolar type; F17.200 Nicotine dependence, unspecified, uncomplicated; F12.90 Cannabis use, unspecified, uncomplicated; X58.XXXD Exposure to other specified factors, subsequent encounter ==

== ENCOUNTER → 2023-01-29 | Outpatient (CLI) | payer MEDICARE, OTHER | END | disposition home or self-care (01) | LOC: WOUNDCARE 00:16 | PROVIDERS: ATTEND Nurse Practitioner Family | DX: L73.2 Hidradenitis suppurativa (principal); S31.000D Unspecified open wound of lower back and pelvis without penetration into retroperitoneum, subsequent encounter; S31.010D Laceration without foreign body of lower back and pelvis without penetration into retroperitoneum, subsequent encounter; E78.5 Hyperlipidemia, unspecified; F25.0 Schizoaffective disorder, bipolar type; B19.20 Unspecified viral hepatitis C without hepatic coma; F17.200 Nicotine dependence, unspecified, uncomplicated; F31.9 Bipolar disorder, unspecified; X58.XXXD Exposure to other specified factors, subsequent encounter ==

== ENCOUNTER → 2023-02-05 | Outpatient (CLI) | payer MEDICARE, OTHER | END | disposition home or self-care (01) | LOC: WOUNDCARE 02:20 | PROVIDERS: ATTEND Surgery | DX: L73.2 Hidradenitis suppurativa (principal); S31.000D Unspecified open wound of lower back and pelvis without penetration into retroperitoneum, subsequent encounter; B19.20 Unspecified viral hepatitis C without hepatic coma; E78.5 Hyperlipidemia, unspecified; F25.0 Schizoaffective disorder, bipolar type; F17.200 Nicotine dependence, unspecified, uncomplicated; F12.90 Cannabis use, unspecified, uncomplicated; F31.9 Bipolar disorder, unspecified; X58.XXXD Exposure to other specified factors, subsequent encounter ==

== ENCOUNTER → 2023-02-21 | Outpatient (CLI) | payer MEDICARE, OTHER ==
[2023-02-22 20:07] LABS: HEPATITIS C QUANTITATION HCV Not Detected IU/mL (.)
== END | disposition home or self-care (01) ==
LOC: WOUNDCARE 00:34 → LAB 00:34 → WOUNDCARE 16:24
PROVIDERS: Internal Medicine Gastroenterology; ATTEND Nurse Practitioner Family
DX: L73.2 Hidradenitis suppurativa (principal); L98.422 Non-pressure chronic ulcer of back with fat layer exposed; L84 Corns and callosities; L91.9 Hypertrophic disorder of the skin, unspecified; S31.000D Unspecified open wound of lower back and pelvis without penetration into retroperitoneum, subsequent encounter; B19.20 Unspecified viral hepatitis C without hepatic coma; E78.5 Hyperlipidemia, unspecified; M79.9 Soft tissue disorder, unspecified; F17.200 Nicotine dependence, unspecified, uncomplicated; F31.9 Bipolar disorder, unspecified; F25.0 Schizoaffective disorder, bipolar type; Z87.2 Personal history of diseases of the skin and subcutaneous tissue; X58.XXXD Exposure to other specified factors, subsequent encounter

== ENCOUNTER → 2023-03-07 | Outpatient (CLI) | payer MEDICARE, OTHER | LOC: WOUNDCARE 01:56 | PROVIDERS: ATTEND Nurse Practitioner Family | DX: L73.2 Hidradenitis suppurativa (principal); L98.422 Non-pressure chronic ulcer of back with fat layer exposed; L98.492 Non-pressure chronic ulcer of skin of other sites with fat layer exposed; S31.000D Unspecified open wound of lower back and pelvis without penetration into retroperitoneum, subsequent encounter; L91.9 Hypertrophic disorder of the skin, unspecified; E78.5 Hyperlipidemia, unspecified; M79.9 Soft tissue disorder, unspecified; F25.0 Schizoaffective disorder, bipolar type; F19.20 Other psychoactive substance dependence, uncomplicated; F17.200 Nicotine dependence, unspecified, uncomplicated; F31.9 Bipolar disorder, unspecified; Z87.2 Personal history of diseases of the skin and subcutaneous tissue; X58.XXXD Exposure to other specified factors, subsequent encounter ==

== ENCOUNTER → 2023-03-21 | Outpatient (CLI) | payer MEDICARE, OTHER | END | disposition home or self-care (01) | LOC: WOUNDCARE 00:44 | PROVIDERS: ATTEND Nurse Practitioner Family | DX: L73.2 Hidradenitis suppurativa (principal); S31.000D Unspecified open wound of lower back and pelvis without penetration into retroperitoneum, subsequent encounter; L98.422 Non-pressure chronic ulcer of back with fat layer exposed; L84 Corns and callosities; B19.20 Unspecified viral hepatitis C without hepatic coma; E78.5 Hyperlipidemia, unspecified; M79.9 Soft tissue disorder, unspecified; L91.9 Hypertrophic disorder of the skin, unspecified; F25.0 Schizoaffective disorder, bipolar type; F17.200 Nicotine dependence, unspecified, uncomplicated; F31.9 Bipolar disorder, unspecified; Z87.2 Personal history of diseases of the skin and subcutaneous tissue ==

== ENCOUNTER → 2023-04-10 | Outpatient (CLI) | payer MEDICARE, OTHER | LOC: WOUNDCARE 01:18 | PROVIDERS: ATTEND Nurse Practitioner Family | DX: L73.2 Hidradenitis suppurativa (principal); L98.422 Non-pressure chronic ulcer of back with fat layer exposed; L98.492 Non-pressure chronic ulcer of skin of other sites with fat layer exposed; S31.000D Unspecified open wound of lower back and pelvis without penetration into retroperitoneum, subsequent encounter; L84 Corns and callosities; L91.9 Hypertrophic disorder of the skin, unspecified; B19.20 Unspecified viral hepatitis C without hepatic coma; E78.5 Hyperlipidemia, unspecified; M79.9 Soft tissue disorder, unspecified; F25.0 Schizoaffective disorder, bipolar type; F17.200 Nicotine dependence, unspecified, uncomplicated; F31.9 Bipolar disorder, unspecified; Z87.2 Personal history of diseases of the skin and subcutaneous tissue; X58.XXXD Exposure to other specified factors, subsequent encounter ==

== ENCOUNTER → 2023-04-24 | Outpatient (CLI) | payer MEDICARE, OTHER | END | disposition home or self-care (01) | LOC: WOUNDCARE 02:19 | PROVIDERS: ATTEND Nurse Practitioner Family | DX: L73.2 Hidradenitis suppurativa (principal); L98.422 Non-pressure chronic ulcer of back with fat layer exposed; L98.492 Non-pressure chronic ulcer of skin of other sites with fat layer exposed; S31.000D Unspecified open wound of lower back and pelvis without penetration into retroperitoneum, subsequent encounter; L84 Corns and callosities; L91.9 Hypertrophic disorder of the skin, unspecified; B19.20 Unspecified viral hepatitis C without hepatic coma; E78.5 Hyperlipidemia, unspecified; M79.9 Soft tissue disorder, unspecified; F25.0 Schizoaffective disorder, bipolar type; F17.200 Nicotine dependence, unspecified, uncomplicated; F31.9 Bipolar disorder, unspecified; Z87.2 Personal history of diseases of the skin and subcutaneous tissue; X58.XXXD Exposure to other specified factors, subsequent encounter ==

== ENCOUNTER → 2023-05-07 | Outpatient (CLI) | payer MEDICARE, OTHER | END | disposition home or self-care (01) | LOC: WOUNDCARE 01:52 | PROVIDERS: ATTEND Nurse Practitioner Family | DX: L73.2 Hidradenitis suppurativa (principal); L98.422 Non-pressure chronic ulcer of back with fat layer exposed; S31.000D Unspecified open wound of lower back and pelvis without penetration into retroperitoneum, subsequent encounter; L84 Corns and callosities; B19.20 Unspecified viral hepatitis C without hepatic coma; E78.5 Hyperlipidemia, unspecified; M79.9 Soft tissue disorder, unspecified; L91.9 Hypertrophic disorder of the skin, unspecified; F17.200 Nicotine dependence, unspecified, uncomplicated; F25.0 Schizoaffective disorder, bipolar type; F12.90 Cannabis use, unspecified, uncomplicated; F31.9 Bipolar disorder, unspecified; Z87.2 Personal history of diseases of the skin and subcutaneous tissue; X58.XXXD Exposure to other specified factors, subsequent encounter ==

== ENCOUNTER → 2023-05-29 | Outpatient (CLI) | payer MEDICARE, OTHER | END | disposition home or self-care (01) | LOC: WOUNDCARE 12:05 | PROVIDERS: ATTEND Nurse Practitioner Family | DX: L73.2 Hidradenitis suppurativa (principal); L98.422 Non-pressure chronic ulcer of back with fat layer exposed; L98.492 Non-pressure chronic ulcer of skin of other sites with fat layer exposed; L91.9 Hypertrophic disorder of the skin, unspecified; S31.000D Unspecified open wound of lower back and pelvis without penetration into retroperitoneum, subsequent encounter; L84 Corns and callosities; B19.20 Unspecified viral hepatitis C without hepatic coma; E78.5 Hyperlipidemia, unspecified; M79.9 Soft tissue disorder, unspecified; F17.200 Nicotine dependence, unspecified, uncomplicated; F25.0 Schizoaffective disorder, bipolar type; F31.9 Bipolar disorder, unspecified; Z87.2 Personal history of diseases of the skin and subcutaneous tissue; X58.XXXD Exposure to other specified factors, subsequent encounter ==

== ENCOUNTER → 2023-06-12 | Outpatient (CLI) | payer MEDICARE, OTHER | END | disposition home or self-care (01) | LOC: WOUNDCARE 05-21 02:23 | PROVIDERS: ATTEND Nurse Practitioner Family | DX: L73.2 Hidradenitis suppurativa (principal); L98.422 Non-pressure chronic ulcer of back with fat layer exposed; S31.000D Unspecified open wound of lower back and pelvis without penetration into retroperitoneum, subsequent encounter; L91.9 Hypertrophic disorder of the skin, unspecified; B19.20 Unspecified viral hepatitis C without hepatic coma; E78.5 Hyperlipidemia, unspecified; M79.9 Soft tissue disorder, unspecified; F25.0 Schizoaffective disorder, bipolar type; F17.200 Nicotine dependence, unspecified, uncomplicated; F31.9 Bipolar disorder, unspecified; Z87.2 Personal history of diseases of the skin and subcutaneous tissue; X58.XXXD Exposure to other specified factors, subsequent encounter ==

== ENCOUNTER → 2023-06-27 | Outpatient (CLI) | payer MEDICARE, OTHER | END | disposition home or self-care (01) | LOC: WOUNDCARE 13:03 | PROVIDERS: ATTEND Nurse Practitioner Family | DX: L73.2 Hidradenitis suppurativa (principal); L98.421 Non-pressure chronic ulcer of back limited to breakdown of skin; L98.491 Non-pressure chronic ulcer of skin of other sites limited to breakdown of skin; F31.9 Bipolar disorder, unspecified; F20.9 Schizophrenia, unspecified; F17.210 Nicotine dependence, cigarettes, uncomplicated ==

== ENCOUNTER 2023-07-15 18:00 | Emergency (ER) | payer OTHER ==
[2023-07-15 18:13] VITALS: BP 144/87
[2023-07-15 18:34] LABS: BASO % 0.3 % (0.0-1.0); EOS # 0.1 10*3/uL (0.0-0.4); LYMPH # 2.1 10*3/uL (1.3-4.4); LYMPH % 34.5 % (27.0-41.0); MEAN CELL VOLUME 90.3 fl (80.0-94.0); MEAN CORPUSCULAR HGB 30.2 pg (27.0-31.0); MEAN CORPUSCULAR HGB CONC 33.4 g/dl (33.0-37.0); MEAN PLATELET VOLUME 9.6 fl (9.6-12.3); MONO # 0.6 10*3/uL (0.1-1.0); MONO % 8.9 % (3.0-9.0); NEUT # 3.4 10*3/uL (2.3-7.9); NEUT % 55.1 % (47.0-73.0); PLATELET COUNT AUTOMATED 162 10*3/uL (130-400); RED BLOOD COUNT 4.87 10*6/uL (4.50-5.90); RED CELL DISTRI WIDTH 12.1 % (0-14.5); WHITE BLOOD COUNT 6.2 10*3/uL (4.8-10.8)
[2023-07-15 18:42] LABS: BILIRUBIN Negative (Negative); BLOOD Negative (Negative); CLARITY Clear (Clear); COLOR Yellow (Yellow); GLUCOSE Negative (Negative); KETONE 1+ (Negative); LEUKO ESTERASE Negative (Negative); NITRITE Negative (Negative); PH 6.5 (4.5-8.0); SPECIFIC GRAVITY >= 1.030 (1.001-1.030)
[2023-07-15 18:58] LABS: ALKALINE PHOSPHATASE 99 U/L (46-116); BUN 10 mg/dl (9-23); CHLORIDE 103 mmol/L (98-107); CPK 666 U/L (34-171); ETHYL ALCOHOL 5.9 mg/dl (<3); POTASSIUM 4.2 mmol/L (3.4-5.1); SGPT/ALT 7 U/L (5-49); TOTAL PROTEIN 7.9 gm/dL (6.0-8.0)
[2023-07-15 18:58] LABS: URINE AMPHETAMINES Positive (1000ng/ml); URINE BARBITURATES Negative (200ng/ml); URINE BENZODIAZEPINES Negative (200ng/ml); URINE CANNABINOIDS (THC) Positive (50ng/ml); URINE COCAINE Negative (300ng/ml); URINE METHADONE Negative (300ng/ml); URINE OPIATES Negative (300ng/ml); URINE PHENCYCLIDINE Negative (25ng/ml)
[2023-07-15 19:06] LABS: BACTERIA 1+; MUCOUS 2+
== END 2023-07-15 20:33 | disposition home or self-care (01) ==
LOC: ED 18:00
PROVIDERS: Physician Assistant Medical
DX: F25.9 Schizoaffective disorder, unspecified (principal); Z88.0 Allergy status to penicillin; Z88.1 Allergy status to other antibiotic agents; Z98.890 Other specified postprocedural states; F14.90 Cocaine use, unspecified, uncomplicated; F12.90 Cannabis use, unspecified, uncomplicated; F17.210 Nicotine dependence, cigarettes, uncomplicated; Z79.899 Other long term (current) drug therapy

== ENCOUNTER → 2023-07-17 | Outpatient (CLI) | payer OTHER | END | disposition home or self-care (01) | LOC: WOUNDCARE 02:56 | PROVIDERS: ATTEND Nurse Practitioner Family | DX: L73.2 Hidradenitis suppurativa (principal); L98.421 Non-pressure chronic ulcer of back limited to breakdown of skin; B19.20 Unspecified viral hepatitis C without hepatic coma; F31.9 Bipolar disorder, unspecified; F20.9 Schizophrenia, unspecified; F17.290 Nicotine dependence, other tobacco product, uncomplicated ==

== ENCOUNTER → 2023-07-31 | Outpatient (CLI) | payer OTHER | END | disposition home or self-care (01) | LOC: WOUNDCARE 02:04 | PROVIDERS: ATTEND Nurse Practitioner Family | DX: L73.2 Hidradenitis suppurativa (principal); L98.421 Non-pressure chronic ulcer of back limited to breakdown of skin; L98.491 Non-pressure chronic ulcer of skin of other sites limited to breakdown of skin; F17.200 Nicotine dependence, unspecified, uncomplicated; F31.9 Bipolar disorder, unspecified; F20.9 Schizophrenia, unspecified; Z87.2 Personal history of diseases of the skin and subcutaneous tissue ==

== ENCOUNTER 2023-11-27 11:36 | Emergency (ER) | payer OTHER ==
[2023-11-27] MEDS ORDERED: LORazepam 2 MG TAB PO ONE (11:40)
[2023-11-27] MEDS ORDERED: diphenhydrAMINE hydrochloride 25 MG CAP PO ONE (11:40)
[2023-11-27] MEDS ORDERED: Ziprasidone Hydrochloride 40 MG CAP PO ONE (11:40)
[2023-11-27 12:00] LABS: BASO % 0.4 % (0.0-1.0); EOS # 0.2 10*3/uL (0.0-0.4); EOS % 3.1 % (1.0-4.0); HEMATOCRIT 40.8 % (42.0-52.0); LYMPH # 2.1 10*3/uL (1.3-4.4); LYMPH % 42.8 % (27.0-41.0); MEAN CELL VOLUME 90.9 fl (80.0-94.0); MEAN CORPUSCULAR HGB 30.5 pg (27.0-31.0); MEAN CORPUSCULAR HGB CONC 33.6 g/dl (33.0-37.0); MEAN PLATELET VOLUME 9.8 fl (9.6-12.3); MONO # 0.5 10*3/uL (0.1-1.0); MONO % 9.6 % (3.0-9.0); NEUT # 2.2 10*3/uL (2.3-7.9); NEUT % 44.1 % (47.0-73.0); PLATELET COUNT AUTOMATED 136 10*3/uL (130-400); RED BLOOD COUNT 4.49 10*6/uL (4.50-5.90); RED CELL DISTRI WIDTH 12.2 % (0-14.5); WHITE BLOOD COUNT 4.9 10*3/uL (4.8-10.8)
[2023-11-27 12:23] LABS: ALKALINE PHOSPHATASE 128 U/L (46-116); BUN 12 mg/dl (9-23); CHLORIDE 107 mmol/L (98-107); CPK 533 U/L (34-171); TOTAL PROTEIN 7.1 gm/dL (6.0-8.0)
[2023-11-27 12:24] LABS: ETHYL ALCOHOL < 3.0 mg/dl (<3); SGPT/ALT < 7 U/L (5-49)
[2023-11-27 15:27] LABS: BILIRUBIN Negative (Negative); BLOOD Negative (Negative); CLARITY Clear (Clear); COLOR Yellow (Yellow); GLUCOSE Negative (Negative); KETONE Negative (Negative); LEUKO ESTERASE Negative (Negative); NITRITE Negative (Negative); SPECIFIC GRAVITY <= 1.005 (1.001-1.030); UROBILINOGEN 0.2 E.U./dl (0.0-1.0)
[2023-11-27 15:35] LABS: URINE AMPHETAMINES Positive (1000ng/ml); URINE BARBITURATES Negative (200ng/ml); URINE BENZODIAZEPINES Negative (200ng/ml); URINE CANNABINOIDS (THC) Positive (50ng/ml); URINE COCAINE Negative (300ng/ml); URINE METHADONE Negative (300ng/ml); URINE OPIATES Negative (300ng/ml); URINE PHENCYCLIDINE Negative (25ng/ml)
[2023-11-27 15:43] LABS: WBC 0-2 wbc/hpf (0-5)
== END 2023-11-27 19:57 | disposition home or self-care (01) ==
LOC: ED 11:36
PROVIDERS: Emergency Medicine
DX: F25.8 Other schizoaffective disorders (principal); F31.9 Bipolar disorder, unspecified; I10 Essential (primary) hypertension; Z88.0 Allergy status to penicillin; Z88.1 Allergy status to other antibiotic agents; Z79.899 Other long term (current) drug therapy

== ENCOUNTER 2023-12-01 10:54 | Emergency (ER) | payer OTHER ==
[~2023-12-01] VITALS: Ht 190.5 cm; Wt 94.3 kg
[2023-12-01 11:36] LABS: BASO % 0.3 % (0.0-1.0); EOS # 0.1 10*3/uL (0.0-0.4); EOS % 2.1 % (1.0-4.0); HEMATOCRIT 43.7 % (42.0-52.0); LYMPH # 2.2 10*3/uL (1.3-4.4); LYMPH % 35.1 % (27.0-41.0); MEAN CELL VOLUME 88.5 fl (80.0-94.0); MEAN CORPUSCULAR HGB CONC 33.9 g/dl (33.0-37.0); MEAN PLATELET VOLUME 9.2 fl (9.6-12.3); MONO # 0.7 10*3/uL (0.1-1.0); MONO % 10.4 % (3.0-9.0); NEUT # 3.3 10*3/uL (2.3-7.9); NEUT % 51.9 % (47.0-73.0); PLATELET COUNT AUTOMATED 180 10*3/uL (130-400); RED BLOOD COUNT 4.94 10*6/uL (4.50-5.90); RED CELL DISTRI WIDTH 12.2 % (0-14.5); WHITE BLOOD COUNT 6.3 10*3/uL (4.8-10.8)
[2023-12-01 12:21] LABS: BUN 13 mg/dl (9-23); CHLORIDE 105 mmol/L (98-107); POTASSIUM 3.9 mmol/L (3.4-5.1)
[2023-12-01 12:27] LABS: ETHYL ALCOHOL < 3.0 mg/dl (<3)
[2023-12-01 14:50] LABS: BILIRUBIN Negative (Negative); BLOOD Negative (Negative); CLARITY Clear (Clear); COLOR Yellow (Yellow); GLUCOSE Negative (Negative); KETONE Trace (Negative); LEUKO ESTERASE Negative (Negative); NITRITE Negative (Negative); PH 5.5 (4.5-8.0); SPECIFIC GRAVITY >= 1.030 (1.001-1.030)
[2023-12-01 14:57] LABS: MUCOUS TRACE; URINE AMPHETAMINES Positive (1000ng/ml); URINE BARBITURATES Negative (200ng/ml); URINE BENZODIAZEPINES Negative (200ng/ml); URINE CANNABINOIDS (THC) Positive (50ng/ml); URINE COCAINE Negative (300ng/ml); URINE METHADONE Negative (300ng/ml); URINE OPIATES Negative (300ng/ml); URINE PHENCYCLIDINE Negative (25ng/ml); WBC 0-2 wbc/hpf (0-5)
[2023-12-01] MEDS ORDERED: Haloperidol Lactate 5 MG/ML AMP IM ONE (17:30)
[2023-12-01] MEDS ORDERED: DIAZEPAM 10 MG/2 ML SYR IM ONE (17:30)
[2023-12-01] MEDS ORDERED: SODIUM CHLORIDE 0.9% 1,000 ML IV ONE ×2 (17:30)
[2023-12-01] MEDS ORDERED: LORazepam 2 MG TAB PO ONE (23:40)
[2023-12-02 08:13] VITALS: BP 126/86
== END 2023-12-02 12:56 | disposition home or self-care (01) ==
LOC: ED 10:54
PROVIDERS: Emergency Medicine
DX: F25.9 Schizoaffective disorder, unspecified (principal); F15.90 Other stimulant use, unspecified, uncomplicated; I10 Essential (primary) hypertension; F31.9 Bipolar disorder, unspecified; F14.90 Cocaine use, unspecified, uncomplicated; F12.90 Cannabis use, unspecified, uncomplicated; Z72.0 Tobacco use; F19.10 Other psychoactive substance abuse, uncomplicated; Z88.0 Allergy status to penicillin; Z88.1 Allergy status to other antibiotic agents; Z98.890 Other specified postprocedural states

== ENCOUNTER 2023-12-04 11:02 | Emergency (ER) | payer OTHER ==
[2023-12-04 14:15] LABS: BASO % 0.4 % (0.0-1.0); EOS # 0.2 10*3/uL (0.0-0.4); EOS % 3.5 % (1.0-4.0); HEMATOCRIT 41.3 % (42.0-52.0); LYMPH # 2.3 10*3/uL (1.3-4.4); LYMPH % 43.9 % (27.0-41.0); MEAN CORPUSCULAR HGB 30.6 pg (27.0-31.0); MEAN CORPUSCULAR HGB CONC 33.7 g/dl (33.0-37.0); MEAN PLATELET VOLUME 8.7 fl (9.6-12.3); MONO # 0.6 10*3/uL (0.1-1.0); NEUT # 2.1 10*3/uL (2.3-7.9); NEUT % 40.2 % (47.0-73.0); PLATELET COUNT AUTOMATED 144 10*3/uL (130-400); RED BLOOD COUNT 4.54 10*6/uL (4.50-5.90); RED CELL DISTRI WIDTH 12.2 % (0-14.5); WHITE BLOOD COUNT 5.2 10*3/uL (4.8-10.8)
[2023-12-04 14:41] LABS: ALKALINE PHOSPHATASE 107 U/L (46-116); BUN 9 mg/dl (9-23); CHLORIDE 103 mmol/L (98-107); CPK 630 U/L (34-171); ETHYL ALCOHOL < 3.0 mg/dl (<3); POTASSIUM 4.2 mmol/L (3.4-5.1); SGPT/ALT < 7 U/L (5-49); TOTAL PROTEIN 6.7 gm/dL (6.0-8.0)
[2023-12-04 17:51] LABS: URINE AMPHETAMINES Negative (1000ng/ml); URINE BARBITURATES Negative (200ng/ml); URINE BENZODIAZEPINES Negative (200ng/ml); URINE CANNABINOIDS (THC) Positive (50ng/ml); URINE COCAINE Positive (300ng/ml); URINE METHADONE Negative (300ng/ml); URINE OPIATES Negative (300ng/ml); URINE PHENCYCLIDINE Negative (25ng/ml)
[2023-12-04] MEDS ORDERED: SODIUM CHLORIDE 0.9% 1,000 ML IV ONE (22:25)
[2023-12-04] MEDS ORDERED: Ziprasidone Mesylate 20 MG VIAL IM ONE (22:35)
[2023-12-05] MEDS ORDERED: Water, Sterile 10 ML VIAL ONE (06:52)
[2023-12-05] MEDS ORDERED: LORazepam 2 MG TAB PO ONE ×2 (08:50→11:45)
[2023-12-05 15:23] LABS: BILIRUBIN Negative (Negative); BLOOD Negative (Negative); CLARITY Clear (Clear); COLOR Yellow (Yellow); GLUCOSE Negative (Negative); KETONE Negative (Negative); LEUKO ESTERASE Negative (Negative); NITRITE Negative (Negative); PH 7.5 (4.5-8.0); UROBILINOGEN 0.2 E.U./dl (0.0-1.0)
[2023-12-05 15:31] LABS: RBC 0-2 rbc/hpf (0-2); WBC 0-2 wbc/hpf (0-5)
[2023-12-05] MEDS ORDERED: SODIUM CHLORIDE 0.9% 1,000 ML IV ONE (21:20)
[2023-12-06] MEDS ORDERED: LORazepam 2 MG TAB PO PRN (07:10)
[2023-12-06] MEDS ORDERED: Ziprasidone Hydrochloride 40 MG CAP PO SCH (08:00)
[2023-12-06 11:26] VITALS: BP 134/77
== END 2023-12-06 17:09 | disposition short-term general hospital (02) ==
LOC: ED 11:02
PROVIDERS: Emergency Medicine
DX: F25.0 Schizoaffective disorder, bipolar type (principal); F15.10 Other stimulant abuse, uncomplicated; F17.200 Nicotine dependence, unspecified, uncomplicated; Z88.0 Allergy status to penicillin; Z88.1 Allergy status to other antibiotic agents; Z79.899 Other long term (current) drug therapy

== ENCOUNTER → 2024-01-29 | Outpatient (CLI) | payer OTHER | LOC: WOUNDCARE 02:36 | PROVIDERS: ATTEND Nurse Practitioner Family | DX: L73.2 Hidradenitis suppurativa (principal); L98.412 Non-pressure chronic ulcer of buttock with fat layer exposed; L84 Corns and callosities; B19.20 Unspecified viral hepatitis C without hepatic coma; F20.9 Schizophrenia, unspecified; F31.9 Bipolar disorder, unspecified; F17.210 Nicotine dependence, cigarettes, uncomplicated; Z79.899 Other long term (current) drug therapy ==

== ENCOUNTER → 2024-02-13 | Outpatient (CLI) | payer OTHER | END | disposition home or self-care (01) | LOC: WOUNDCARE 02:45 | PROVIDERS: ATTEND Nurse Practitioner Family | DX: L73.2 Hidradenitis suppurativa (principal); L98.412 Non-pressure chronic ulcer of buttock with fat layer exposed; L84 Corns and callosities; B19.20 Unspecified viral hepatitis C without hepatic coma; F20.9 Schizophrenia, unspecified; F31.9 Bipolar disorder, unspecified; F17.210 Nicotine dependence, cigarettes, uncomplicated; Z79.899 Other long term (current) drug therapy ==

== ENCOUNTER → 2024-03-06 | Outpatient (CLI) | payer OTHER | END | disposition home or self-care (01) | LOC: WOUNDCARE 01:19 | PROVIDERS: ATTEND Nurse Practitioner Family | DX: L73.2 Hidradenitis suppurativa (principal); L98.412 Non-pressure chronic ulcer of buttock with fat layer exposed; L84 Corns and callosities; F17.200 Nicotine dependence, unspecified, uncomplicated; F31.9 Bipolar disorder, unspecified; F20.9 Schizophrenia, unspecified ==

== ENCOUNTER → 2024-03-20 | Outpatient (CLI) | payer OTHER | END | disposition home or self-care (01) | LOC: WOUNDCARE 03:31 | PROVIDERS: ATTEND Nurse Practitioner Family | DX: L73.2 Hidradenitis suppurativa (principal); L98.412 Non-pressure chronic ulcer of buttock with fat layer exposed; L84 Corns and callosities; B19.20 Unspecified viral hepatitis C without hepatic coma; F31.9 Bipolar disorder, unspecified; F20.9 Schizophrenia, unspecified; F17.210 Nicotine dependence, cigarettes, uncomplicated; Z79.899 Other long term (current) drug therapy ==

== ENCOUNTER → 2024-04-03 | Outpatient (CLI) | payer OTHER | END | disposition home or self-care (01) | LOC: WOUNDCARE 01:28 | PROVIDERS: ATTEND Nurse Practitioner Family | DX: L73.2 Hidradenitis suppurativa (principal); L98.412 Non-pressure chronic ulcer of buttock with fat layer exposed; B19.20 Unspecified viral hepatitis C without hepatic coma; F31.9 Bipolar disorder, unspecified; F20.9 Schizophrenia, unspecified; F17.210 Nicotine dependence, cigarettes, uncomplicated; Z79.899 Other long term (current) drug therapy ==

== ENCOUNTER 2024-10-11 08:53 | Emergency (ER) | payer OTHER ==
[~2024-10-11] VITALS: Wt 68.0 kg
[2024-10-11] MEDS ORDERED: Ziprasidone Mesylate 20 MG VIAL IM PRN ×3 (09:00→11:15)
[2024-10-11 09:23] LABS: BASO % 0.5 % (0.0-1.0); EOS # 0.1 10*3/uL (0.0-0.4); EOS % 2.2 % (1.0-4.0); HEMATOCRIT 41.4 % (42.0-52.0); MEAN CORPUSCULAR HGB 30.3 pg (27.0-31.0); MEAN CORPUSCULAR HGB CONC 34.1 g/dl (33.0-37.0); MEAN PLATELET VOLUME 9.5 fl (9.6-12.3); MONO # 0.6 10*3/uL (0.1-1.0); MONO % 9.7 % (3.0-9.0); NEUT # 4.1 10*3/uL (2.3-7.9); NEUT % 64.5 % (47.0-73.0); PLATELET COUNT AUTOMATED 148 10*3/uL (130-400); RED BLOOD COUNT 4.65 10*6/uL (4.50-5.90); RED CELL DISTRI WIDTH 11.9 % (0-14.5); WHITE BLOOD COUNT 6.3 10*3/uL (4.8-10.8)
[2024-10-11] MEDS ORDERED: Water, Sterile 10 ML VIAL ONE ×2 (09:23→11:46)
[2024-10-11 09:33] LABS: ACT PARTIAL THROMBO TIME 30.2 SECONDS (20.0-32.1)
[2024-10-11 09:40] LABS: BILIRUBIN Negative (Negative); BLOOD Negative (Negative); CLARITY Clear (Clear); COLOR Yellow (Yellow); GLUCOSE Negative (Negative); KETONE Negative (Negative); LEUKO ESTERASE Negative (Negative); NITRITE Negative (Negative); PH 6.5 (4.5-8.0); SPECIFIC GRAVITY <= 1.005 (1.001-1.030); UROBILINOGEN 0.2 E.U./dl (0.0-1.0)
[2024-10-11 09:42] LABS: ALKALINE PHOSPHATASE 152 U/L (46-116); BUN 12 mg/dl (9-23); CHLORIDE 102 mmol/L (98-107); CPK 487 U/L (34-171); POTASSIUM 3.8 mmol/L (3.4-5.1); TOTAL PROTEIN 8.1 gm/dL (6.0-8.0)
[2024-10-11 09:43] LABS: ETHYL ALCOHOL < 3.0 mg/dl (<3); SGPT/ALT < 7 U/L (5-49)
[2024-10-11 09:48] LABS: EPITHELIAL CELLS 0-2
[2024-10-11 09:59] LABS: URINE AMPHETAMINES Negative (1000ng/ml); URINE BARBITURATES Negative (200ng/ml); URINE BENZODIAZEPINES Negative (200ng/ml); URINE CANNABINOIDS (THC) Positive (50ng/ml); URINE COCAINE Negative (300ng/ml); URINE METHADONE Negative (300ng/ml); URINE OPIATES Negative (300ng/ml); URINE PHENCYCLIDINE Negative (25ng/ml)
[2024-10-11] MEDS ORDERED: SODIUM CHLORIDE 0.9% 1,000 ML IV ONE (10:05)
[2024-10-11] MEDS ORDERED: Midazolam Hydrochloride 5 MG/5 ML VIAL IV PRN (14:05)
[2024-10-11] MEDS ORDERED: [UNRECOGNIZED DRUG - REMARK] (16:57)
[2024-10-13 17:59] VITALS: BP 145/88
== END 2024-10-13 20:59 ==
LOC: ED 08:53
PROVIDERS: Internal Medicine
DX: F25.0 Schizoaffective disorder, bipolar type (principal); F14.90 Cocaine use, unspecified, uncomplicated; F12.90 Cannabis use, unspecified, uncomplicated; F17.200 Nicotine dependence, unspecified, uncomplicated; Z88.0 Allergy status to penicillin; Z88.1 Allergy status to other antibiotic agents; Z79.899 Other long term (current) drug therapy